=== PATIENT | male | born 1995 | race Asian ===

== ENCOUNTER 2017-03-31 11:48 | Emergency (ER) | payer MEDICAID ==
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
[2017-03-31 14:10] VITALS: BP 134/92
== END 2017-03-31 14:10 | disposition home or self-care (01) ==
LOC: ED 11:48
DX: Z04.8 Encounter for examination and observation for other specified reasons (principal)
CPT/HCPCS: 99282; 99283

== ENCOUNTER 2017-04-25 14:37 | Outpatient (CLI) | payer MEDICAID | END 2017-04-25 14:38 | disposition critical access hospital (66) | LOC: EMS 14:37 | PROVIDERS: ATTEND Surgery | DX: F91.9 Conduct disorder, unspecified (principal) | CPT/HCPCS: A0425; A0429 ==

== ENCOUNTER 2017-04-25 14:55 | Emergency (ER) | payer MEDICAID ==
[2017-04-25 15:52] VITALS: BP 140/87
[2017-04-25] MEDS ORDERED: LORazepam 0.5 MG TABLET PO STA ×2 (16:02→16:04)
[2017-04-25] MEDS ORDERED: LORazepam 0.5 MG TABLET ONE (16:08)
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
== END 2017-04-25 17:29 | disposition home or self-care (01) ==
LOC: ED 14:55
DX: F84.0 Autistic disorder (principal)
CPT/HCPCS: 99283; 99284; A9270; 80053; 80307; 80320; 80329; 83690; 85025

== ENCOUNTER 2017-10-24 12:07 | Outpatient (CLI) | payer MEDICAID | END 2017-10-24 12:08 | disposition critical access hospital (66) | LOC: EMS 12:07 | PROVIDERS: ATTEND Surgery | DX: R45.6 Violent behavior (principal); R45.1 Restlessness and agitation | CPT/HCPCS: A0425; A0429 ==

== ENCOUNTER 2017-10-24 12:37 | Emergency (ER) | payer MEDICAID ==
--- NOTE | 2017-10-24 12:44 | ED Physician Documentation ---
PD HPI MHE - Stated complaint Stated Complaint: VIOLENT - History obtained from History obtained from: Patient, EMS - History of Present Illness Primary symptom: Anxiety, Aggressive behavior (staff member says the patient has been more agitated over baseline with some aggressive acting out at times over the past 1-2 weeks. Was very agitated today and throwing things and was wandering out into street. He was not easily calmed. EMS called and he is improved enroute here. He had had similar problems few months ago and was improved with Clonazepam PO added daily and Ativan PRN. He is waiting to get into Autism clinic in [place]. Current PCP is [facility] in [facility].) Timing - onset: How many weeks ago (1-2 weeks of increased agitation over baseline, most in mornings.) Contributing factors: No: Off meds Similar symptoms before: Diagnosis (aggressive behavior related to anxiety/ stress with his cognitive problem/autism.) Recently seen: Not recently seen Review of Systems Constitutional: denies: Fever Respiratory: denies: Cough GI: denies: Vomiting, Diarrhea Skin: denies: Rash PD PAST MEDICAL HISTORY - Past Medical History Cardiovascular: Other Respiratory: None Neuro: None Psych: Other (autism) - Past Surgical History Past Surgical History: No - Present Medications Home Medications: Ambulatory Orders Medication Instructions Recorded Confirmed Carbamazepine 200 mg PO BID 03/31/17 04/25/17 Cholecalciferol (Vitamin D3) 2,000 unit PO DAILY 03/31/17 04/25/17 [Vitamin D] LORazepam [Ativan] 0.5 mg PO Q6H 03/31/17 04/25/17 Mupirocin 1 gm TP BID 03/31/17 04/25/17 Quetiapine Fumarate [Seroquel] 300 mg PO TID 03/31/17 04/25/17 - Allergies Allergies/Adverse Reactions: Allergies Allergy/AdvReac Type Severity Reaction Status Date / Time amoxicillin Allergy Unknown Verified 04/25/17 15:52 - Social History Does the pt smoke?: No Smoking Status: Never smoker Does the pt drink ETOH?: No Does the pt have substance abuse?: No PD ED PE NORMAL - Vitals Vital signs reviewed: Yes - General General: No acute distress, Well developed/nourished, Other (non verbal but will answer yes/no by pointing to left or right hands. Follows commands right now. Not aggressive here in ED. ) - HEENT HEENT: Atraumatic. No: Dentition benign (apparent broken teeth from recent injuries. 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 No: Normal speech Results - Vitals Vitals: Vital Signs - 24 hr 10/24/17 12:41 Temperature 36.8 C Heart Rate 108 H Respiratory 20 Rate Blood Pressure 135/92 H O2 Saturation 98 Oxygen O2 Source Room air PD MEDICAL DECISION MAKING - ED course Complexity details: considered differential, d/w PMD (compressor station engineer chief provider for his clinic, and concurs with adding Clonazepam dose at night, so 1 mg day and 0.5 mg at night. Other meds the same. ), other (d/w caregiver with him, who feels he is doing okay right now. Patient agrees he could use med adjustment and would like to feel less agitated. ) Departure - Departure Clinical Impression: Autism, Behavioral change Condition: Stable Record reviewed to determine appropriate education?: Yes Comments: Increase his Clonazepam from 1 mg daily, to new dose: Clonazepam 1 mg in daily AM Clonazepam 0.5 mg daily PM I discussed this with his primary care clinic and this was a concurrence decision. Other medications the same.
[2017-10-24] MEDS ORDERED: OLANZapine ODT 5 MG TABLET TL ONE (12:58)
[2017-10-24 14:09] VITALS: BP 132/88
== END 2017-10-24 14:18 | disposition home or self-care (01) ==
LOC: ED 12:37
DX: F84.0 Autistic disorder (principal); R45.1 Restlessness and agitation
CPT/HCPCS: 99283; A9270

== ENCOUNTER 2017-10-28 08:36 | Outpatient (CLI) | payer MEDICAID | END 2017-10-28 08:37 | disposition critical access hospital (66) | LOC: EMS 08:36 | PROVIDERS: ATTEND Surgery | DX: R45.6 Violent behavior (principal) | CPT/HCPCS: A0425; A0429 ==

== ENCOUNTER 2017-10-28 08:56 | Emergency (ER) | payer MEDICAID ==
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
[2017-10-28] MEDS: LORazepam 0.5 MG TABLET PO STA (09:29)
[2017-10-28] MEDS ORDERED: CHERRY SYRUP 10 ML UDC PO ONE ×2 (10:17→13:38)
[2017-10-28] MEDS ORDERED: LORazepam 2 MG/ML VIAL IM STA ×2 (11:01→17:21)
[2017-10-28] MEDS ORDERED: LORazepam 0.5 MG TABLET PO STA ×2 (12:59→23:20)
[2017-10-28] MEDS ORDERED: OLANZapine ODT 5 MG TABLET TL STA (20:32)
[2017-10-29 01:56] LABS: MUDS CUTOFF CONCENTRATIONS CUTOFF CONC BELOW:
[2017-10-29 01:59] LABS: BILIRUBIN,URINE NEGATIVE (NEGATIVE); GLUCOSE, URINE (UA) NEGATIVE (NEGATIVE); KETONES,URINE (UA) NEGATIVE (NEGATIVE); LEUKOCYTE ESTERASE, URINE NEGATIVE (NEGATIVE); NITRITE,URINE NEGATIVE (NEGATIVE); OCCULT BLOOD,URINE NEGATIVE (NEGATIVE); PROTEIN,URINE NEGATIVE (NEGATIVE); UROBILINOGEN,URINE 0.2 (NORMAL) E.U./dL (NORMAL)
[2017-10-29 02:09] LABS: CLARITY,URINE CLEAR (CLEAR)
[2017-10-29 02:10] LABS: AMPHETAMINE SCREEN,URINE NEGATIVE (NEGATIVE); BENZODIAZEPINES SCREEN, URINE POSITIVE (NEGATIVE); COCAINE SCREEN URINE NEGATIVE (NEGATIVE); METHADONE SCREEN, URINE NEGATIVE (NEGATIVE); METHAMPHETAMINES SCREEN, URINE NEGATIVE (NEGATIVE); OPIATE SCREEN, URINE NEGATIVE (NEGATIVE); OXYCODONE SCREEN, URINE NEGATIVE (NEGATIVE); PROPOXYPHENE SCREEN, URINE NEGATIVE (NEGATIVE); TRICYCLIC ANTIDEPRESSANT,URINE POSITIVE (NEGATIVE)
[2017-10-29] MEDS ORDERED: LORazepam 0.5 MG TABLET PO STA ×2 (08:22→14:18)
[2017-10-29] MEDS: LORazepam 0.5 MG TABLET PO STA (12:42)
[2017-10-29] MEDS ORDERED: LORazepam 0.5 MG TABLET PO SCH (13:00)
[2017-10-29] MEDS ORDERED: LORazepam 2 MG/ML VIAL IM STA ×2 (14:20→14:29)
[2017-10-29] MEDS ORDERED: LORazepam 2 MG/ML VIAL ONE (14:32)
[2017-10-29 18:03] VITALS: BP 127/77
[2017-10-29] MEDS ORDERED: carBAMazepine 200 MG TABLET PO SCH (21:00)
[2017-10-29] MEDS ORDERED: QUEtiapine 100 MG TABLET PO SCH (21:00)
[2017-10-30] MEDS ORDERED: clonazePAM 0.5 MG TABLET PO SCH (09:00)
== END 2017-10-29 18:13 | disposition home or self-care (01) ==
LOC: EDUNIT# → ED 08:56
DX: F84.0 Autistic disorder (principal); F91.8 Other conduct disorders; R45.1 Restlessness and agitation; S40.811A Abrasion of right upper arm, initial encounter; X83.8XXA Intentional self-harm by other specified means, initial encounter
CPT/HCPCS: 80306; 81003; 96372; 99284; A9270; J2060; 81001; 87086

== ENCOUNTER 2017-11-03 04:23 | Outpatient (CLI) | payer MEDICAID | END 2017-11-03 04:24 | disposition critical access hospital (66) | LOC: EMS 04:23 | PROVIDERS: ATTEND Surgery | DX: R45.6 Violent behavior (principal) | CPT/HCPCS: A0425; A0429 ==

== ENCOUNTER 2017-11-03 04:39 | Emergency (ER) | payer MEDICAID ==
[2017-11-03] MEDS ORDERED: OLANZapine 10 MG VIAL IM STA (04:56)
[2017-11-03] MEDS ORDERED: OLANZapine 10 MG VIAL IM ONE (05:08)
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
--- NOTE | 2017-11-03 08:04 | ED Physician Documentation ---
ED Addendum - Addendum Addendum: 11/03/17 08:01 Patient was removed from restraints and is at his normal mental baseline. No emergency medical condition at this time. Caregiver will come and pick him up. Will follow up with PCP for further care. 09 Patient's shelter refuses to take the patient back at this time. Deborah DAVIS involved and speaking with Ramírez from [facility]. [facility] requests DMHP evaluation. [facility] contacted by RN and pt does not meet dispatch criteria. [facility] then requests SW involvement. As of 1699, there is no resolution and unfortunately this young man will have to remain in an emergency department indefinitely due to the shelter's refusal to care for him any further. Patient signed out to oncoming emergency physician. Departure - Departure Clinical Impression: Behavioral change Condition: Stable Follow-Up: BELEN RUBI MD [Primary Care Provider] - Within 3 Days Comments: You can speak to his primary care provider about changing his medications. If he continues to have behavioral issues, you can call the [facility] and they will dispatch a DMHP to evaluate him at your facility. ( )/
[2017-11-03] MEDS ORDERED: OLANZapine ODT 5 MG TABLET TL STA (10:26)
[2017-11-03] MEDS ORDERED: LORazepam 0.5 MG TABLET PO STA ×2 (10:26→16:58)
[2017-11-03] MEDS ORDERED: QUEtiapine 100 MG TABLET PO STA (16:10)
[2017-11-03] MEDS ORDERED: carBAMazepine 200 MG TABLET PO STA (16:10)
[2017-11-03] MEDS ORDERED: clonazePAM 0.5 MG TABLET PO STA (16:10)
[2017-11-03] MEDS ORDERED: OLANZapine ODT 5 MG TABLET TL ONE (16:58)
[2017-11-03] MEDS: carBAMazepine 200 MG TABLET PO SCH ×2 (17:03→22:15)
[2017-11-03] MEDS ORDERED: LORazepam 2 MG/ML VIAL IM STA (19:45)
--- NOTE | 2017-11-03 19:51 | ED Physician Documentation ---
ED Addendum - Addendum Addendum: 11/03/17 19:50 unscheduled return visit - chart accessed for follow up and educational purposes
[2017-11-03] MEDS: QUEtiapine 100 MG TABLET PO SCH (22:14)
[2017-11-04] MEDS: QUEtiapine 100 MG TABLET PO SCH ×3 (06:34→21:45)
[2017-11-04] MEDS ORDERED: LORazepam 2 MG/ML VIAL IM STA (06:35)
[2017-11-04] MEDS: clonazePAM 0.5 MG TABLET PO SCH (08:56)
[2017-11-04] MEDS: carBAMazepine 200 MG TABLET PO SCH ×2 (08:56→21:15)
[2017-11-04] MEDS ORDERED: LORazepam 0.5 MG TABLET PO STA ×3 (09:25→21:55)
--- NOTE | 2017-11-04 17:53 | ED Physician Documentation ---
ED Addendum - Addendum Addendum: 11/04/17 17:51 22-year-old male with autism spectrum disorder has become disorderly in his residence and is not welcome to come back there. Here in the emergency department the patient has some behavioral issues with some moaning and wandering and this has not worked well in the emergency department and he has been medicated for these behaviors with Ativan and Seroquel. Despite medication for this the patient continues to have outbursts of morning. Here in the emergency department today he received several doses of Ativan he received his Seroquel and he continues to have this morning behavior wandering and there is a worker from the [facility] that is working on bed placement for the patient. There is a fair chance he may have a bed to go to tomorrow. I did personally examine the patient did not find anything more specific.
[2017-11-05] MEDS: QUEtiapine 100 MG TABLET PO SCH ×3 (06:21→21:33)
[2017-11-05] MEDS ORDERED: LORazepam 0.5 MG TABLET PO STA ×2 (07:31→13:10)
[2017-11-05] MEDS: carBAMazepine 200 MG TABLET PO SCH ×2 (09:52→21:33)
[2017-11-05] MEDS: clonazePAM 0.5 MG TABLET PO SCH (09:52)
[2017-11-05] MEDS ORDERED: hydrOXYzine PAMOATE 25 MG CAPSULE PO STA (11:09)
[2017-11-05] MEDS ORDERED: HALOPERIDOL 1 MG TABLET PO STA (17:46)
[2017-11-05] MEDS ORDERED: diphenhydrAMINE 25 MG CAPSULE PO STA (17:47)
[2017-11-05] MEDS ORDERED: LORazepam 2 MG/ML VIAL IM STA (19:36)
--- NOTE | 2017-11-05 22:04 | ED Physician Documentation ---
ED Addendum - Addendum Addendum: 11/05/17 22:03 He has been pretty much the same today as he has been in days past. Intermittently agitated but usually cooperative. The tech and sitter took him for a walk outside earlier today which helped calm him for a while and I guess the shower last night helped for a while as well. He has been getting his routine meds and an occasional extra dose of Ativan when he is very agitated. My understanding is that the state is looking for long-term placement.
[2017-11-06] MEDS: QUEtiapine 100 MG TABLET PO SCH ×3 (06:57→22:00)
[2017-11-06] MEDS: clonazePAM 0.5 MG TABLET PO SCH (08:43)
[2017-11-06] MEDS: carBAMazepine 200 MG TABLET PO SCH ×2 (08:43→21:08)
[2017-11-06] MEDS ORDERED: HALOPERIDOL 1 MG TABLET PO STA (10:27)
[2017-11-06] MEDS ORDERED: diphenhydrAMINE 25 MG CAPSULE PO STA (10:27)
[2017-11-06] MEDS ORDERED: LORazepam 0.5 MG TABLET PO STA (14:41)
[2017-11-07] MEDS: QUEtiapine 100 MG TABLET PO SCH ×3 (06:09→22:15)
[2017-11-07] MEDS ORDERED: LORazepam 2 MG/ML VIAL IM STA (06:17)
--- NOTE | 2017-11-07 06:19 | ED Physician Documentation ---
ED Addendum - Addendum Addendum: at approximately 6:15 in the morning on 11/07/17 patient was becoming agitated and biting himself. patient had already taken his morning medications and was treated with supplemental ativan IM. Patient had no issues overnight. 11/07/17 06:18
[2017-11-07] MEDS: clonazePAM 0.5 MG TABLET PO SCH (08:35)
[2017-11-07] MEDS: carBAMazepine 200 MG TABLET PO SCH ×2 (08:35→20:47)
[2017-11-07] MEDS ORDERED: LORazepam 0.5 MG TABLET PO STA ×2 (12:20→18:52)
[2017-11-08] MEDS: QUEtiapine 100 MG TABLET PO SCH ×3 (06:15→21:38)
[2017-11-08] MEDS ORDERED: LORazepam 0.5 MG TABLET PO STA ×2 (08:41→18:05)
[2017-11-08] MEDS: clonazePAM 0.5 MG TABLET PO SCH (09:39)
[2017-11-08] MEDS: carBAMazepine 200 MG TABLET PO SCH ×2 (09:39→21:38)
--- NOTE | 2017-11-08 10:04 | ED Physician Documentation ---
ED Addendum - Addendum Addendum: 11/08/17 10:02 Patient is in room. He is watching a show. He is being given his usual morning meds. No report of problems from warehouse shift supervisor and will give him usual meds. Reportedly no placement movement happening until some assessment on Friday.
[2017-11-09] MEDS: QUEtiapine 100 MG TABLET PO SCH ×3 (06:30→21:54)
[2017-11-09] MEDS: carBAMazepine 200 MG TABLET PO SCH ×2 (09:13→21:54)
[2017-11-09] MEDS: clonazePAM 0.5 MG TABLET PO SCH (09:13)
[2017-11-09] MEDS ORDERED: LORazepam 0.5 MG TABLET PO STA ×2 (13:28→23:01)
[2017-11-09] MEDS ORDERED: ACETAMINOPHEN 325 MG TABLET PO STA (22:42)
--- NOTE | 2017-11-10 06:06 | ED Physician Documentation ---
ED Addendum - Addendum Addendum: 11/10/17 06:01 Patient was increasingly agitated at the beginning of my shift and was given ativan (ordered by mid-shift ED MD who was still on duty at the time; this was prior to turn over of this patient's care). Shortly after receiving the ativan, patient fell asleep and he rested quietly for the remainder of my shift. Patient 's care turned over to oncoming ED physician. Further evaluation for placement is planned for later today.
[2017-11-10] MEDS: QUEtiapine 100 MG TABLET PO SCH ×3 (06:44→22:16)
[2017-11-10] MEDS: carBAMazepine 200 MG TABLET PO SCH ×2 (09:13→21:03)
[2017-11-10] MEDS: clonazePAM 0.5 MG TABLET PO SCH (09:14)
[2017-11-10] MEDS ORDERED: LORazepam 0.5 MG TABLET PO STA ×2 (12:01→22:36)
[2017-11-10] MEDS ORDERED: LORazepam 0.5 MG TABLET ONE (22:48)
[2017-11-10] MEDS ORDERED: OLANZapine 10 MG VIAL IM STA (23:16)
[2017-11-10] MEDS ORDERED: WATER FOR INJECTION,STERILE 10 ML ONE (23:20)
[2017-11-10] MEDS ORDERED: OLANZapine 10 MG VIAL IM ONE (23:20)
[2017-11-11] MEDS: QUEtiapine 100 MG TABLET PO SCH ×3 (06:29→21:43)
--- NOTE | 2017-11-11 08:07 | ED Physician Documentation ---
ED Addendum - Addendum Addendum: 11/11/17 07:58 Received sign-out from previous (mid-shift) ED physician. Patient continues to await disposition (placement to appropriate facility). As he did the previous night, patient became agitated and did not respond to attempts at verbal reassurance/instruction. He did take 2 mg PO ativan that I ordered for this agitation, but he subsequently escalated, ran out of his room and was trying to strike his head against the wall (I did not witness this, as I was in another room with a patient, and nurse was able to direct patient back to his room). Due to this behavior, he was placed in four-point restraints and given IM zyprexa (these measures were undertaken after RN informed me of patient 's behavior and my direction for the restraints and zyprexa to be given). These orders were entered into the computer under a different physician (Dr. Comer) accidentally. Patient responded quickly to the Zyprexa, fell asleep, and rested calmly and quietly for the remainder of my shift. Turned over to Dr. Jones at the end of my shift, 7 AM 11/11/17.
[2017-11-11] MEDS: clonazePAM 0.5 MG TABLET PO SCH (09:37)
[2017-11-11] MEDS: carBAMazepine 200 MG TABLET PO SCH ×2 (09:37→21:43)
[2017-11-11] MEDS ORDERED: LORazepam 0.5 MG TABLET PO STA (11:35)
[2017-11-11] MEDS ORDERED: OLANZapine ODT 5 MG TABLET TL ONE (12:36)
[2017-11-12] MEDS: QUEtiapine 100 MG TABLET PO SCH ×3 (05:56→21:35)
[2017-11-12] MEDS ORDERED: LORazepam 2 MG/ML VIAL IM STA (06:49)
[2017-11-12] MEDS: carBAMazepine 200 MG TABLET PO SCH ×2 (10:41→21:35)
[2017-11-12] MEDS: clonazePAM 0.5 MG TABLET PO SCH (10:41)
[2017-11-12] MEDS ORDERED: LORazepam 0.5 MG TABLET PO STA (12:49)
--- NOTE | 2017-11-12 21:45 | ED Physician Documentation ---
ED Addendum - Addendum Addendum: 11/12/17 21:44 He seems to have been a little more calm today than in days past, mostly in the room with a sitter. I have not heard a whole lot of screaming or yelling. And he has not needed his much extra medication. I do not think he has been restrained at all today. My understanding is probably still be next week before he is placed.
[2017-11-13] MEDS: QUEtiapine 100 MG TABLET PO SCH ×3 (06:00→21:35)
[2017-11-13] MEDS: clonazePAM 0.5 MG TABLET PO SCH (09:14)
[2017-11-13] MEDS: carBAMazepine 200 MG TABLET PO SCH ×2 (09:14→21:35)
[2017-11-13] MEDS ORDERED: OLANZapine 10 MG VIAL IM STA (09:16)
[2017-11-13] MEDS ORDERED: LORazepam 2 MG/ML VIAL IM STA ×2 (10:55→15:53)
--- NOTE | 2017-11-13 10:57 | ED Physician Documentation ---
ED Addendum - Addendum Addendum: 11/13/17 10:56 The patient remains in the ER having been here for a long time awaiting placement. He had been getting his usual medications. No significant report from overnight shift. This morning he was getting more agitated than his usual morning and was given extra doses of medication with olanzapine 5 mg IM initially and then Ativan 1 mg IM after that. He was given his usual morning medicines as well. He was being verbal as is common for him but also some physicality with being at agitated.
[2017-11-13] MEDS ORDERED: LORazepam 0.5 MG TABLET PO STA (17:00)
[2017-11-14] MEDS: QUEtiapine 100 MG TABLET PO SCH ×3 (06:35→21:14)
--- NOTE | 2017-11-14 06:40 | ED Physician Documentation ---
ED Addendum - Addendum Addendum: 11/14/17 06:43 Continues to await placement. Rested quietly during my shift subsequent to receiving sign-out from previous ED MD (11 PM 11/13/17) until the end of my shift , approximately 6:45 AM, when he awoke and rapidly became agitated and repeatedly walking out of his room to hallway. He was given 2mg PO ativan.
[2017-11-14] MEDS ORDERED: LORazepam 0.5 MG TABLET PO STA ×3 (06:52→20:38)
[2017-11-14] MEDS: carBAMazepine 200 MG TABLET PO SCH ×2 (09:25→21:15)
[2017-11-14] MEDS: clonazePAM 0.5 MG TABLET PO SCH (09:25)
[2017-11-14] MEDS ORDERED: OLANZapine 10 MG VIAL IM STA (14:50)
[2017-11-15] MEDS: QUEtiapine 100 MG TABLET PO SCH ×3 (06:15→21:30)
--- NOTE | 2017-11-15 07:47 | ED Physician Documentation ---
ED Addendum - Addendum Addendum: 11/15/17 07:43 assumed care 7 AM 11/15 22 male with autism and aggressive behavior sent to ER from his skilled nursing for placement elsewhere per EMR no injury or illness it has been boarding in the ER since 11/03 awaiting state designated casey saw operator to secure new placement I went to see pt he was up and ambulating s assist to the bathroom, then back to bed calm and resting comfortable RRR CTAB has daily meds ordered already plan is to continue to board through the weekend pt became agitated late morning staff tried to redirect and calm s success gave ativan pt continued to become more agitated aggressive had to be restrained continued to be agitated and struggling and yelling so gave zyprexa which (per EMR) has worked well other times during his prolonged ER boarding with good effect pt slept peacefully for several h care turned over to mid shift Dr Milian at 5 PM 11/15/17 11:35 11/15/17 16:47
--- NOTE | 2017-11-15 08:03 | ED Physician Documentation ---
ED Addendum - Addendum Addendum: 11/15/17 08:02 Continues to await placement. Towards the beginning of my overnight shift (-11/15/17), shortly after 8 PM, patient was walking out to the desk (nurses' station). He did this repeatedly despite redirection by nursing staff; he would go back to room when brought back, but would walk back out to the desk as soon as he was left alone. He became increasingly agitated, although he did not become combative or violent. Given 2mg PO ativan and responded well to this. During my shift, he was taken outside for a walk with staff and this seemed to calm him, as well. Turned over to oncoming ED physician at 7 AM 11/15/17
[2017-11-15] MEDS: carBAMazepine 200 MG TABLET PO SCH ×2 (09:29→21:30)
[2017-11-15] MEDS: clonazePAM 0.5 MG TABLET PO SCH (09:29)
[2017-11-15] MEDS ORDERED: LORazepam 0.5 MG TABLET PO STA ×2 (10:31→20:17)
[2017-11-15] MEDS ORDERED: OLANZapine 10 MG VIAL IM STA (11:34)
[2017-11-16] MEDS: QUEtiapine 100 MG TABLET PO SCH ×3 (06:05→21:39)
--- NOTE | 2017-11-16 07:24 | ED Physician Documentation ---
ED Addendum - Addendum Addendum: 11/16/17 07:23 assumed care again 7 AM 11/16 shift stacker reports pt had a good night - got a shower, went for a walk and staff brought in books to read to him went to see pt he is resting in bed but awake and smiling RRR CTAB will continue to board pending placement no acute events this shift pt became a bit agitated better with ativan no restraints needed provided coloring book and magazine for pt to help with his boredom and frustration 11/16/17 19:40
[2017-11-16] MEDS: carBAMazepine 200 MG TABLET PO SCH ×2 (09:36→21:39)
[2017-11-16] MEDS: clonazePAM 0.5 MG TABLET PO SCH (09:36)
[2017-11-16] MEDS ORDERED: LORazepam 0.5 MG TABLET PO STA (10:31)
[2017-11-16] MEDS ORDERED: OLANZapine 10 MG VIAL IM STA ×2 (13:51→20:01)
--- NOTE | 2017-11-17 07:25 | ED Physician Documentation ---
ED Addendum - Addendum Addendum: 11/17/17 07:22 resumed care 7 AM 11/17/17 per awake overnight monitor Dr Rizzo given zyprexa yesterday evening no restraints overnight went to see pt he is in bed but awake smiling RRR CTAB calm at this time daily meds ordered already continues to board in the ED pending placement by his [facility] field nurse case manager today is the day [facility] field nurse case manager has a meeting to place pt awaiting outcome of this meeting 730PM per note unfortunately the anticipated meeting seems to have never occurred pts field nurse case manager was off work today now a new field nurse case manager has been assigned pts info has been sent to 4 residential care homes and two agencies per house sup pt is to remain boarding in the ER turned over to awake overnight monitor 11/17/17 07:23 11/17/17 19:40
[2017-11-17] MEDS: QUEtiapine 100 MG TABLET PO SCH ×3 (08:23→21:05)
[2017-11-17] MEDS: clonazePAM 0.5 MG TABLET PO SCH (08:23)
[2017-11-17] MEDS: carBAMazepine 200 MG TABLET PO SCH ×2 (08:23→21:04)
[2017-11-17] MEDS ORDERED: LORazepam 0.5 MG TABLET PO STA ×2 (14:36→20:59)
[2017-11-17] MEDS ORDERED: LORazepam 0.5 MG TABLET ONE (14:44)
[2017-11-18] MEDS: QUEtiapine 100 MG TABLET PO SCH ×3 (06:20→21:25)
[2017-11-18] MEDS: carBAMazepine 200 MG TABLET PO SCH ×2 (08:35→21:25)
[2017-11-18] MEDS: clonazePAM 0.5 MG TABLET PO SCH (08:35)
[2017-11-18] MEDS ORDERED: LORazepam 0.5 MG TABLET PO STA ×2 (09:10→14:45)
[2017-11-18] MEDS ORDERED: OLANZapine ODT 5 MG TABLET TL ONE ×2 (11:34→11:48)
[2017-11-18] MEDS ORDERED: WATER FOR INJECTION,STERILE 10 ML ONE (11:45)
[2017-11-18] MEDS ORDERED: OLANZapine 10 MG VIAL IM STA (14:09)
[2017-11-18] MEDS ORDERED: LORazepam 2 MG/ML VIAL IM STA (14:48)
[2017-11-18] MEDS ORDERED: LORazepam 2 MG/ML VIAL ONE (14:56)
[2017-11-19] MEDS: QUEtiapine 100 MG TABLET PO SCH ×3 (06:28→21:35)
[2017-11-19] MEDS ORDERED: LORazepam 0.5 MG TABLET PO STA (07:41)
[2017-11-19] MEDS ORDERED: LORazepam 0.5 MG TABLET ONE (07:52)
[2017-11-19] MEDS: clonazePAM 0.5 MG TABLET PO SCH (09:10)
[2017-11-19] MEDS: carBAMazepine 200 MG TABLET PO SCH ×2 (09:10→21:35)
[2017-11-19] MEDS: LORazepam 0.5 MG TABLET PO PRN (17:33)
[2017-11-20] MEDS: LORazepam 0.5 MG TABLET PO PRN ×3 (00:35→21:34)
[2017-11-20] MEDS ORDERED: OLANZapine 10 MG VIAL IM STA ×2 (01:19→13:19)
--- NOTE | 2017-11-20 01:22 | ED Physician Documentation ---
ED Addendum - Addendum Addendum: 11/20/17 01:20 At this time, patient is yelling loudly, kicking at bed as well as staff. He does not improve with attempts to verbally calm/soothe him, lights turned down, offered television as distraction. He required 4-point restraints due to aggressive behavior toward staff and given IM zyprexa. 11/20/17 07:45 Subsequent to the IM zyprexa, patient slowly but steadily improved (less agitated, more cooperative) and restraints removed, patient fell asleep and slept quietly for the remainder of my overnight shift (11/19-11/20/17). Signed out to onccarmina ED MD at 7 AM 11/20/17.
[2017-11-20] MEDS ORDERED: LORazepam 0.5 MG TABLET PO STA (02:01)
[2017-11-20] MEDS ORDERED: LORazepam 2 MG/ML VIAL ONE (02:31)
[2017-11-20] MEDS ORDERED: LORazepam 2 MG/ML VIAL IM STA (02:32)
[2017-11-20] MEDS: QUEtiapine 100 MG TABLET PO SCH ×2 (06:21→21:34)
[2017-11-20] MEDS: carBAMazepine 200 MG TABLET PO SCH ×2 (11:06→21:34)
[2017-11-20] MEDS: clonazePAM 0.5 MG TABLET PO SCH (11:06)
[2017-11-20] MEDS ORDERED: OLANZapine 10 MG VIAL IM ONE (13:31)
[2017-11-20] MEDS ORDERED: WATER FOR INJECTION,STERILE 10 ML ONE (13:31)
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
[2017-11-21] MEDS: QUEtiapine 100 MG TABLET PO SCH ×3 (05:46→21:31)
[2017-11-21] MEDS: LORazepam 0.5 MG TABLET PO PRN ×3 (05:46→21:31)
[2017-11-21] MEDS ORDERED: LORazepam 0.5 MG TABLET PO STA (06:21)
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
[2017-11-21] MEDS: clonazePAM 0.5 MG TABLET PO SCH (09:20)
[2017-11-21] MEDS: carBAMazepine 200 MG TABLET PO SCH ×2 (09:20→21:31)
[2017-11-21] MEDS ORDERED: OLANZapine ODT 5 MG TABLET TL STA (14:12)
[2017-11-22] MEDS: QUEtiapine 100 MG TABLET PO SCH ×3 (06:45→20:53)
[2017-11-22] MEDS: LORazepam 0.5 MG TABLET PO PRN ×2 (06:45→14:23)
--- NOTE | 2017-11-22 07:41 | ED Physician Documentation ---
ED Addendum - Addendum Addendum: 11/22/17 07:40 assumed care again 7 AM 11/22 per nurse no acute events overnight pt watching TV calmly RRR CTAB continues to board awaiting placement 11/22/17 16:09 some other resources/placement that might be useful for this pt would include [employer] [facility] in [place] or [facility] provide immediate respite care pending permanent placement rather than boarding in ED no acute events today turned over to house furnishings supervisor Dr Davis 11/22/17 16:13 11/22/17 20:15
[2017-11-22] MEDS: clonazePAM 0.5 MG TABLET PO SCH (08:54)
[2017-11-22] MEDS: carBAMazepine 200 MG TABLET PO SCH ×2 (08:54→20:53)
[2017-11-22] MEDS ORDERED: LORazepam 2 MG/ML VIAL IM STA (16:12)
[2017-11-22] MEDS ORDERED: LORazepam 2 MG/ML VIAL ONE (16:25)
[2017-11-23] MEDS: QUEtiapine 100 MG TABLET PO SCH ×2 (06:06→14:19)
[2017-11-23] MEDS: LORazepam 0.5 MG TABLET PO PRN ×3 (06:06→17:45)
--- NOTE | 2017-11-23 07:59 | ED Physician Documentation ---
ED Addendum - Addendum Addendum: 11/23/17 07:57 assumed care again 7 AM 11/23 pt up and awake with nurse sitter in room happy RRR CTAB will continue to board no expectation of placement today as it is Friday no acute events care turned over to next shift 11/23/17 19:57
[2017-11-23] MEDS: carBAMazepine 200 MG TABLET PO SCH (11:12)
[2017-11-23] MEDS: clonazePAM 0.5 MG TABLET PO SCH (11:12)
[2017-11-24] MEDS: LORazepam 0.5 MG TABLET PO PRN ×3 (04:42→23:55)
[2017-11-24] MEDS: QUEtiapine 100 MG TABLET PO SCH ×3 (06:29→21:35)
[2017-11-24] MEDS: carBAMazepine 200 MG TABLET PO SCH ×2 (09:10→21:30)
[2017-11-24] MEDS: clonazePAM 0.5 MG TABLET PO SCH (09:10)
[2017-11-24] MEDS ORDERED: LORazepam 2 MG/ML VIAL IVP STA (09:32)
[2017-11-24] MEDS ORDERED: OLANZapine 10 MG VIAL IM STA ×2 (09:36→09:56)
[2017-11-24] MEDS ORDERED: OLANZapine 10 MG VIAL IM ONE (09:47)
[2017-11-24] MEDS ORDERED: LORazepam 2 MG/ML VIAL IM STA (09:57)
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
[2017-11-25] MEDS ORDERED: diphenhydrAMINE INJ 50 MG/ML VIAL IM PRN (06:14)
[2017-11-25] MEDS: QUEtiapine 100 MG TABLET PO SCH ×3 (06:30→21:30)
[2017-11-25] MEDS: LORazepam 0.5 MG TABLET PO SCH ×3 (06:30→21:30)
[2017-11-25] MEDS: carBAMazepine 200 MG TABLET PO SCH ×3 (06:30→21:30)
[2017-11-25] MEDS: LORazepam 0.5 MG TABLET PO PRN ×2 (09:30→19:20)
--- NOTE | 2017-11-25 18:02 | ED Physician Documentation ---
ED Addendum - Addendum Addendum: 11/25/17 17:56 Today Curtis did not assault anyone and did not require PRN sedatives or restraint during my shift. Supplemental resources have been supplied with history from prior residential care, psych notes and interval history notes since childhood. These are helpful in communicating with Curtis and treating him in a manor he has experienced previously. His medications have been changed slightly at the recommendation of telepsych Dr. Shrestha. It does not appear a ready solution to his residence is forth coming and here in the ED we are attempting to provide a structured environment to lessen the load of his care on the ED and to provide the patient with more stable care.
[2017-11-25] MEDS ORDERED: OLANZapine 10 MG VIAL IM STA ×2 (19:35→19:38)
[2017-11-25] MEDS ORDERED: KETAMINE 500 MG/10 ML VIAL IM STA (19:41)
[2017-11-25] MEDS ORDERED: OLANZapine 10 MG VIAL IM ONE (19:50)
[2017-11-25] MEDS ORDERED: diphenhydrAMINE INJ 50 MG/ML VIAL IM STA (21:25)
[2017-11-25] MEDS ORDERED: LORazepam 2 MG/ML VIAL IM STA (21:26)
[2017-11-26] MEDS: LORazepam 0.5 MG TABLET PO SCH ×3 (06:10→21:33)
[2017-11-26] MEDS: QUEtiapine 100 MG TABLET PO SCH ×3 (06:10→21:33)
[2017-11-26] MEDS: carBAMazepine 200 MG TABLET PO SCH ×3 (06:10→21:33)
[2017-11-26] MEDS ORDERED: OLANZapine 10 MG VIAL IM STA (13:31)
[2017-11-26] MEDS ORDERED: WATER FOR INJECTION,STERILE 10 ML ONE (13:34)
[2017-11-26] MEDS ORDERED: OLANZapine 10 MG VIAL IM ONE (13:34)
[2017-11-27] MEDS: LORazepam 0.5 MG TABLET PO SCH ×3 (09:00→21:49)
[2017-11-27] MEDS: QUEtiapine 100 MG TABLET PO SCH ×4 (09:00→22:00)
[2017-11-27] MEDS: LORazepam 0.5 MG TABLET PO PRN (10:00)
[2017-11-27] MEDS ORDERED: carBAMazepine 200 MG TABLET PO SCH (12:00)
[2017-11-28] MEDS: QUEtiapine 100 MG TABLET PO SCH ×3 (06:19→21:35)
[2017-11-28] MEDS: LORazepam 0.5 MG TABLET PO SCH ×3 (06:19→21:34)
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
[2017-11-28] MEDS: LORazepam 0.5 MG TABLET PO PRN (09:00)
[2017-11-28] MEDS ORDERED: LORazepam 0.5 MG TABLET PO STA (10:36)
[2017-11-28] MEDS: carBAMazepine 200 MG TABLET PO SCH (15:28)
[2017-11-28] MEDS ORDERED: carBAMazepine 200 MG TABLET PO ONE (21:15)
[2017-11-29] MEDS: LORazepam 0.5 MG TABLET PO SCH ×3 (06:08→22:00)
[2017-11-29] MEDS: QUEtiapine 100 MG TABLET PO SCH ×3 (06:08→22:00)
--- NOTE | 2017-11-29 07:28 | ED Physician Documentation ---
ED Addendum - Addendum Addendum: 11/29/17 07:26 resumed care 7 AM November 29 pt in bed watching movies waiting for breakfast security watching him awake alert calm right now RRR CTAB it is the weekend no anticipation of placement or updates today will continue to board 630 PM uneventful day care turned over to next shift 11/29/17 07:27 11/29/17 18:32
[2017-11-29] MEDS: LORazepam 0.5 MG TABLET PO PRN ×2 (11:48→21:36)
[2017-11-29] MEDS: carBAMazepine 200 MG TABLET PO SCH (13:46)
[2017-11-29] MEDS ORDERED: WATER FOR INJECTION,STERILE 10 ML ONE (21:23)
[2017-11-29] MEDS ORDERED: diphenhydrAMINE INJ 50 MG/ML VIAL ONE (21:23)
[2017-11-29] MEDS ORDERED: OLANZapine 10 MG VIAL IM ONE (21:23)
[2017-11-30] MEDS: carBAMazepine 200 MG TABLET PO SCH ×3 (06:25→21:20)
[2017-11-30] MEDS: QUEtiapine 100 MG TABLET PO SCH ×3 (06:25→21:20)
[2017-11-30] MEDS: LORazepam 0.5 MG TABLET PO SCH ×3 (06:25→21:20)
--- NOTE | 2017-11-30 10:27 | ED Physician Documentation ---
ED Addendum - Addendum Addendum: 11/30/17 10:25 resumed care 7 AM November 30 pt in bed watching movies calm security at bedside RRR CTAB per SW note, next anticipated step is for Sarah Manjarrez DD MentalHealth Liaison , contracted through [employer], to be dispatched by [facility] telephonic case manager Michelle Fisher to eval pt and try to place him in a mental health facility 2/2 grave disability, danger to self/others - anticipated date of this eval is TBD will continue to board uneventful day care turned over to next shift 11/30/17 10:27 11/30/17 17:14
[2017-12-01] MEDS: LORazepam 0.5 MG TABLET PO PRN (04:56)
[2017-12-01] MEDS: QUEtiapine 100 MG TABLET PO SCH ×3 (06:09→22:26)
[2017-12-01] MEDS: carBAMazepine 200 MG TABLET PO SCH ×3 (06:10→22:26)
[2017-12-01] MEDS: LORazepam 0.5 MG TABLET PO SCH ×3 (06:10→22:26)
--- NOTE | 2017-12-01 08:12 | ED Physician Documentation ---
ED Addendum - Addendum Addendum: 12/01/17 08:11 assumed care again 7 AM 7/2 pt in room putting on a clean shirt cooperative at this time RRR CTAB per note, next anticipated step is for Sarah Guerra DD MentalHealth Liaison , contracted through [employer], to be dispatched by [facility] casey saw operator Michelle Fisher to eval pt and try to place him in a mental health facility 2/2 grave disability, danger to self/others - anticipated date of this eval is TBD will continue to board uneventful day per note, Sarah Guerra DD Liaison should be coming to [facility] tomorrow at 1PM care turned over to next shift 12/01/17 19:50 12/01/17 19:51
[2017-12-02] MEDS: LORazepam 0.5 MG TABLET PO PRN ×2 (04:05→16:40)
[2017-12-02] MEDS: LORazepam 0.5 MG TABLET PO SCH ×3 (06:42→22:03)
[2017-12-02] MEDS: QUEtiapine 100 MG TABLET PO SCH ×3 (06:42→22:03)
[2017-12-02] MEDS: carBAMazepine 200 MG TABLET PO SCH ×3 (06:42→22:04)
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
[2017-12-02] MEDS ORDERED: OLANZapine 10 MG VIAL IM STA (08:52)
[2017-12-02] MEDS ORDERED: diphenhydrAMINE 25 MG CAPSULE PO STA (08:52)
[2017-12-03] MEDS: LORazepam 0.5 MG TABLET PO SCH ×3 (06:00→21:58)
[2017-12-03] MEDS: carBAMazepine 200 MG TABLET PO SCH ×3 (06:00→21:58)
[2017-12-03] MEDS: QUEtiapine 100 MG TABLET PO SCH ×3 (06:00→21:58)
[2017-12-03] MEDS ORDERED: OLANZapine 10 MG VIAL IM STA (08:27)
[2017-12-03] MEDS ORDERED: diphenhydrAMINE 25 MG CAPSULE PO STA (08:28)
[2017-12-04] MEDS: LORazepam 0.5 MG TABLET PO SCH ×3 (06:05→22:02)
[2017-12-04] MEDS: carBAMazepine 200 MG TABLET PO SCH ×3 (06:05→22:02)
[2017-12-04] MEDS: QUEtiapine 100 MG TABLET PO SCH ×3 (06:05→22:02)
--- NOTE | 2017-12-04 09:30 | ED Physician Documentation ---
ED Addendum - Addendum Addendum: 12/04/17 09:15 Patient slept quietly during most of my ED shift (overnight 12/03/17-12/04/17, received report from off-going ED MD at 11 PM 12/03 and I signed out to oncoming ED MD 7 AM 12/04/17). Towards the end of my shift, approximately 6:30 AM, patient became agitated, left his room and went into another ED room and tried to use the computer. ED staff was eventually able to redirect him to return to his room. He continued to require repetitive redirection by staff to stay in his room. Turned over to Dr. Jones 7 AM
--- NOTE | 2017-12-04 18:07 | ED Physician Documentation ---
ED Addendum - Addendum Addendum: 12/04/17 18:00 Today Neto Fuentes became agitated at about 10 AM and required staff intervention a number of times. He did not become overtly violent against staff he did tear the doors off of the counter in his room and we were able to arrange the secure room to put him in seclusion.He has now been 2 days without the use of a computer or electronic media he continues to ask for money and [place] videos. Today there did not appear to be any specific trigger for his outburst and he was transferred to the secure room for seclusion with a shut door. he is able to be visualized directly through a window and by close circuit TV monitoring. The exit door to the emergency department is now locked when he is in the seclusion room and a security expert is outside of his door. Yesterday he was medicated with IM zyprexa when he began to escalate and he did not require restraint. Limits and boundaries are being set and the seclusion room is now his residence with punishment for escalation being shutting the door.
[2017-12-05] MEDS: QUEtiapine 100 MG TABLET PO SCH ×3 (06:10→21:44)
[2017-12-05] MEDS: carBAMazepine 200 MG TABLET PO SCH ×3 (06:10→21:44)
[2017-12-05] MEDS: LORazepam 0.5 MG TABLET PO SCH ×3 (06:10→21:44)
[2017-12-05] MEDS: LORazepam 0.5 MG TABLET PO PRN (14:25)
[2017-12-06] MEDS: LORazepam 0.5 MG TABLET PO SCH ×3 (06:01→22:12)
[2017-12-06] MEDS: carBAMazepine 200 MG TABLET PO SCH ×3 (06:01→22:12)
[2017-12-06] MEDS: QUEtiapine 100 MG TABLET PO SCH ×3 (06:01→22:12)
[2017-12-07] MEDS: carBAMazepine 200 MG TABLET PO SCH ×3 (06:06→21:57)
[2017-12-07] MEDS: QUEtiapine 100 MG TABLET PO SCH ×3 (06:06→21:57)
[2017-12-07] MEDS: LORazepam 0.5 MG TABLET PO SCH ×3 (06:06→21:57)
[2017-12-07] MEDS: LORazepam 0.5 MG TABLET PO PRN (12:03)
[2017-12-08] MEDS: LORazepam 0.5 MG TABLET PO SCH ×3 (06:00→22:22)
[2017-12-08] MEDS: QUEtiapine 100 MG TABLET PO SCH ×3 (06:00→22:22)
[2017-12-08] MEDS: carBAMazepine 200 MG TABLET PO SCH ×3 (06:00→22:22)
[2017-12-08] MEDS: LORazepam 0.5 MG TABLET PO PRN (11:30)
[2017-12-09] MEDS: QUEtiapine 100 MG TABLET PO SCH ×3 (06:05→22:35)
[2017-12-09] MEDS: carBAMazepine 200 MG TABLET PO SCH ×3 (06:05→22:35)
[2017-12-09] MEDS: LORazepam 0.5 MG TABLET PO SCH ×3 (06:05→22:35)
[2017-12-09] MEDS ORDERED: MAGNESIUM HYDROXIDE 2,400 MG/30 ML UDC PO STA (12:33)
[2017-12-10] MEDS: QUEtiapine 100 MG TABLET PO SCH ×3 (06:05→22:00)
[2017-12-10] MEDS: LORazepam 0.5 MG TABLET PO SCH ×3 (06:05→22:00)
[2017-12-10] MEDS: carBAMazepine 200 MG TABLET PO SCH ×3 (06:05→22:00)
[2017-12-11] MEDS: carBAMazepine 200 MG TABLET PO SCH ×3 (06:00→22:08)
[2017-12-11] MEDS: LORazepam 0.5 MG TABLET PO SCH ×3 (06:00→22:08)
[2017-12-11] MEDS: QUEtiapine 100 MG TABLET PO SCH ×3 (06:00→22:08)
--- NOTE | 2017-12-11 09:01 | ED Physician Documentation ---
ED Addendum - Addendum Addendum: 12/11/17 09:10 Patient did well during most of my shift (overnight 12/10-12/11/17). He exhibited agitation in the protection officer hours, but responded to redirection and isolation (closed room door) and goal-oriented direction (given computer time in exchange for cooperating and calming down).
[2017-12-12] MEDS: LORazepam 0.5 MG TABLET PO PRN (03:07)
[2017-12-12] MEDS: LORazepam 0.5 MG TABLET PO SCH ×3 (06:33→22:30)
[2017-12-12] MEDS: carBAMazepine 200 MG TABLET PO SCH ×3 (06:33→22:30)
[2017-12-12] MEDS: QUEtiapine 100 MG TABLET PO SCH ×3 (06:33→22:30)
--- NOTE | 2017-12-12 18:25 | ED Physician Documentation ---
ED Addendum - Addendum Addendum: 12/12/17 18:22 During my shift today the patient was mostly calm and cooperative, with security outside the door able to redirect him when he would become agitated. At one point he did become more agitated requiring restraints to be placed temporarily. No new development regarding more appropriate long-term placement.
[2017-12-13] MEDS: QUEtiapine 100 MG TABLET PO SCH ×3 (06:05→22:08)
[2017-12-13] MEDS: carBAMazepine 200 MG TABLET PO SCH ×3 (06:05→22:08)
[2017-12-13] MEDS: LORazepam 0.5 MG TABLET PO SCH ×3 (06:05→22:08)
--- NOTE | 2017-12-13 08:39 | ED Physician Documentation ---
ED Addendum - Addendum Addendum: 12/13/17 08:39 The patient seems to be in his usual state this morning relaxed and comfortable at this time. He is about to have breakfast. He is being monitored with a 1-1 aid in security. He is continuing with his usual medications. There is no reported problems from overnight shift.
[2017-12-13] MEDS: LORazepam 0.5 MG TABLET PO PRN ×2 (11:54→18:15)
[2017-12-14] MEDS: QUEtiapine 100 MG TABLET PO SCH ×3 (06:02→22:49)
[2017-12-14] MEDS: LORazepam 0.5 MG TABLET PO SCH ×3 (06:02→22:49)
[2017-12-14] MEDS: carBAMazepine 200 MG TABLET PO SCH ×3 (06:02→22:49)
[2017-12-14] MEDS: LORazepam 0.5 MG TABLET PO PRN (11:06)
[2017-12-15] MEDS: QUEtiapine 100 MG TABLET PO SCH ×3 (06:42→22:44)
[2017-12-15] MEDS: LORazepam 0.5 MG TABLET PO SCH ×3 (06:42→22:44)
[2017-12-15] MEDS: carBAMazepine 200 MG TABLET PO SCH ×3 (06:42→22:44)
[2017-12-15] MEDS: LORazepam 0.5 MG TABLET PO PRN (08:24)
[2017-12-15] MEDS ORDERED: OLANZapine ODT 5 MG TABLET TL ONE (11:26)
[2017-12-16] MEDS: carBAMazepine 200 MG TABLET PO SCH ×3 (06:30→22:00)
[2017-12-16] MEDS: QUEtiapine 100 MG TABLET PO SCH ×3 (06:30→22:00)
[2017-12-16] MEDS: LORazepam 0.5 MG TABLET PO SCH ×3 (06:30→22:00)
--- NOTE | 2017-12-16 07:38 | ED Physician Documentation ---
ED Addendum - Addendum Addendum: 12/16/17 07:34 assumed care 7 AM 12/16/17 reviewed pts chart last night prior to resuming care per SW and admin notes it seems req for placement have been sent state wide but pt has been declined by numerous facilities [facility] has declined to dispatch [facility] any more SW and or admin should receive a call from pts pillowcase folder regarding results of weekly Friday placement meetings pt has been moved to a new room that can be a seclusion room when needed for pt and staff safety went to see pt he has had breakfast, is up, dressed, and walking around his room seems cheerful RRR CTAB no acute new medical issues identified will continue to board pending placement shift summary - pt became very very agitated mid afternoon pounding on the doors and akbar, could not be redirected and requiring that his door be closed for 15 min - I went to check pt for any injuries he may have suffered - difficult because he is very uncooperative but he is up and walking around, no blood noted on head hand feet, poor dentition generally as before, no ext deformity appreciated, unable to determine if pt is having pain, he has since eaten dinner, gone for a walk, and requested to use the bathroom - does not appear to have any new injuries 12/16/17 20:23
[2017-12-16] MEDS: LORazepam 0.5 MG TABLET PO PRN ×2 (10:23→16:23)
[2017-12-17] MEDS: carBAMazepine 200 MG TABLET PO SCH ×3 (05:30→22:28)
[2017-12-17] MEDS: QUEtiapine 100 MG TABLET PO SCH ×3 (05:30→22:28)
[2017-12-17] MEDS: LORazepam 0.5 MG TABLET PO SCH ×3 (05:30→22:28)
--- NOTE | 2017-12-17 07:50 | ED Physician Documentation ---
ED Addendum - Addendum Addendum: 12/17/17 07:46 resumed care 7 AM 12/17/17 pt is presently very agitated and in seclusion for self and staff safety I went to see him he is standing at the door looking out the window and pounding on the door with his fists he is not hitting is head etc he does not appear injured apparently he did not get his afternoon meds on time yesterday because his nurse was involved in a code then because the afternoon meds were given late, his night meds were delayed - and then pt fell asleep and never got the night meds at all he has received his AM meds on time this change in med administration yesterday may explain his numerous severe violent outbursts over the last 24 hr pt has PRN meds ordered in addition to his regular meds which are now back on schedule examine pt later in the morning, awake alert walking around room drinking juice , RRR, CTAB pt had numerous loud recurrent outbursts and needed to have his door closed for safety several times no placement still will continue to board 12/17/17 20:33 12/17/17 20:41
[2017-12-17] MEDS: LORazepam 0.5 MG TABLET PO PRN (09:18)
[2017-12-18] MEDS: carBAMazepine 200 MG TABLET PO SCH ×3 (06:04→21:50)
[2017-12-18] MEDS: LORazepam 0.5 MG TABLET PO SCH ×3 (06:04→21:50)
[2017-12-18] MEDS: QUEtiapine 100 MG TABLET PO SCH ×3 (06:04→21:50)
--- NOTE | 2017-12-18 06:57 | ED Physician Documentation ---
ED Addendum - Addendum Addendum: 12/18/17 06:56 resumed care 630 AM 12/18/17 as before pt is boarding in our indef pending safe placement no acute medical illness or injury went to see pt he is in his room playing on his phone no acute agitation at this time RRR CTAB plan is to continue to board until his state employment case manager finds placement today was a better day, pt mostly calm, got out for a few walks with security turned over to next shift 12/18/17 20:10
[2017-12-18] MEDS: LORazepam 0.5 MG TABLET PO PRN (17:34)
[2017-12-19] MEDS: QUEtiapine 100 MG TABLET PO SCH ×3 (06:00→21:24)
[2017-12-19] MEDS: LORazepam 0.5 MG TABLET PO SCH ×3 (06:00→21:24)
[2017-12-19] MEDS: carBAMazepine 200 MG TABLET PO SCH ×3 (06:00→21:24)
[2017-12-20] MEDS: QUEtiapine 100 MG TABLET PO SCH ×3 (06:16→21:38)
[2017-12-20] MEDS: LORazepam 0.5 MG TABLET PO SCH ×3 (06:16→21:38)
[2017-12-20] MEDS: carBAMazepine 200 MG TABLET PO SCH ×3 (06:18→21:38)
--- NOTE | 2017-12-20 11:22 | ED Physician Documentation ---
ED Addendum - Addendum Addendum: 12/20/17 11:21 No changes in his status this am. Will continue current meds and treatment plan.
--- NOTE | 2017-12-20 20:49 | ED Physician Documentation ---
ED Addendum - Addendum Addendum: 12/20/17 20:28 on my overnight shift 8 PM 12/19/17 - 7 AM 12/20/17, patient became very agitated at approximately 8:40 PM (12/19/17), punching at staff, threw salgado stand/tray to floor, yelling and punching and kicking the akbar. this behavior lasted approximately 20-30 minutes, after which he calmed and eventually rested and then slept for several hours.
[2017-12-21] MEDS: QUEtiapine 100 MG TABLET PO SCH ×3 (06:11→22:03)
[2017-12-21] MEDS: carBAMazepine 200 MG TABLET PO SCH ×3 (06:11→22:03)
[2017-12-21] MEDS: LORazepam 0.5 MG TABLET PO SCH ×3 (06:11→22:03)
[2017-12-21] MEDS: LORazepam 0.5 MG TABLET PO PRN (10:12)
--- NOTE | 2017-12-21 18:37 | ED Physician Documentation ---
ED Addendum - Addendum Addendum: 12/21/17 18:37 Curtis has had a good day today but he does have a crack to the left front tooth that appears to been sustained recently by banging his head against the glass door. He will need dental evaluation and I believe we can consult a dentist to come to the hospital this week. This does not need to be done over the weekend.
[2017-12-21] MEDS ORDERED: ACETAMINOPHEN 500 MG TABLET PO STA (20:31)
[2017-12-22] MEDS: LORazepam 0.5 MG TABLET PO SCH ×2 (05:50→22:33)
[2017-12-22] MEDS: carBAMazepine 200 MG TABLET PO SCH ×2 (05:50→22:33)
[2017-12-22] MEDS: QUEtiapine 100 MG TABLET PO SCH ×2 (05:50→22:33)
--- NOTE | 2017-12-22 06:57 | ED Physician Documentation ---
ED Addendum - Addendum Addendum: 12/22/17 06:52 assumed care 630 AM 12/22 reviewed records since I last cared for pt apparently he may have damaged a tooth during his violent outbursts this morning he is calm, awake but resting in bed teeth as before appear to have fairly extensive damage and some decay I am not certain how the teeth looked before (am aware there were some broken one prior to this admit but certain which etc), today his upper left incisor appears chipped and cracked and the upper right incisor appears cracked - but that tooth is also decayed and there is not bleeding etc RRR CTAB will continue to board will ask admin how pts dental care and other routine health maintenance needs ( even things as simple as cutting his toesnails) will be addressed if he is going to live in the ER indef re dental care pt would almost certainly need conscious sedation for exam and care I spoke to marvin Tam and both state that they would be willing to take pt to the OR if dental work is necessary - per Dr Tam this would mean infected, aspiration risk, or severe pain still unclear who is actually is POA to consent for OR - SW notes indicate he is his own POA but I do not think he has the capacity to make those decisions in any case the dental work is not emergent so defer to SW and admin and case management social worker to further clarify POA issues and logistics of dealing with post op care , bleeding complications etc no further events today turned over to next shift 12/22/17 07:20 12/22/17 20:58
[2017-12-22] MEDS ORDERED: ACETAMINOPHEN 325 MG TABLET PO STA (19:37)
[2017-12-23] MEDS: LORazepam 0.5 MG TABLET PO SCH ×3 (06:28→21:33)
[2017-12-23] MEDS: QUEtiapine 100 MG TABLET PO SCH ×3 (06:28→21:32)
[2017-12-23] MEDS: carBAMazepine 200 MG TABLET PO SCH ×3 (06:28→21:33)
[2017-12-23] MEDS ORDERED: ACETAMINOPHEN 325 MG TABLET PO STA (10:53)
[2017-12-23] MEDS: LORazepam 0.5 MG TABLET PO PRN (12:12)
[2017-12-24] MEDS: QUEtiapine 100 MG TABLET PO SCH ×4 (05:53→21:42)
[2017-12-24] MEDS: LORazepam 0.5 MG TABLET PO SCH ×3 (05:54→21:42)
[2017-12-24] MEDS: carBAMazepine 200 MG TABLET PO SCH ×3 (05:55→21:42)
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
--- NOTE | 2017-12-24 07:46 | ED Physician Documentation ---
ED Addendum - Addendum Addendum: 12/24/17 07:44 resumed care 7 AM 12/24 pt was seen in ED by dental yesterday Dr Jessenia Tam - see his note - impression was that injured teeth were not infected or risk for aspiration and could be managed conservatively and extraction not required at this time this morning he is ambulating in his room playing a game on a cell phone RRR ARLEYB per note, state case preparer and liner reports pt was again not placed at this weeks meeting 12/22 - will continue to board no acute events today 12/24/17 07:45 12/24/17 07:47 12/24/17 20:22
[2017-12-24] MEDS: LORazepam 0.5 MG TABLET PO PRN (09:08)
[2017-12-25] MEDS: carBAMazepine 200 MG TABLET PO SCH ×3 (06:05→21:50)
[2017-12-25] MEDS: QUEtiapine 100 MG TABLET PO SCH ×3 (06:05→21:50)
[2017-12-25] MEDS: LORazepam 0.5 MG TABLET PO SCH ×3 (06:05→21:50)
--- NOTE | 2017-12-25 07:50 | ED Physician Documentation ---
ED Addendum - Addendum Addendum: 12/25/17 07:49 resumed care again 12/25 no placement, no updates watching Igor movies eating jello RRR CTAB no acute events no sig updates will continue to board 12/25/17 20:58
[2017-12-26] MEDS: LORazepam 0.5 MG TABLET PO PRN (12:38)
[2017-12-26] MEDS: QUEtiapine 100 MG TABLET PO SCH ×2 (13:52→21:43)
[2017-12-26] MEDS: LORazepam 0.5 MG TABLET PO SCH ×2 (13:52→21:43)
[2017-12-26] MEDS: carBAMazepine 200 MG TABLET PO SCH ×2 (13:52→21:43)
--- NOTE | 2017-12-26 18:14 | ED Physician Documentation ---
ED Addendum - Addendum Addendum: Uneventful day. The patient has been doing his normal constant vocalizations, without intelligible words. The few times he became agitated he was able to be calmed without physical restraints. No new information regarding placement. 12/26/17 18:12
[2017-12-27] MEDS: LORazepam 0.5 MG TABLET PO SCH ×3 (06:01→21:32)
[2017-12-27] MEDS: QUEtiapine 100 MG TABLET PO SCH ×3 (06:01→21:32)
[2017-12-27] MEDS: carBAMazepine 200 MG TABLET PO SCH ×3 (06:02→21:33)
[2017-12-27] MEDS: LORazepam 0.5 MG TABLET PO PRN (06:15)
--- NOTE | 2017-12-27 07:39 | ED Physician Documentation ---
ED Addendum - Addendum Addendum: 12/27/17 07:26 Patient rested quietly for most of my shift (overnight 12/26-12/27) until approximately 5:30 AM, when he became very agitated, pounding fists against akbar and door, yelling (incomprehensible, which has been his baseline vocalization). He was given usual morning medications as well as his PRN ativan 2mg PO.
[2017-12-28] MEDS: QUEtiapine 100 MG TABLET PO SCH ×3 (06:09→22:05)
[2017-12-28] MEDS: LORazepam 0.5 MG TABLET PO SCH ×3 (06:09→22:05)
[2017-12-28] MEDS: carBAMazepine 200 MG TABLET PO SCH ×3 (06:09→22:05)
[2017-12-28] MEDS: LORazepam 0.5 MG TABLET PO PRN ×2 (11:12→19:37)
[2017-12-29] MEDS: LORazepam 0.5 MG TABLET PO SCH ×3 (06:00→21:30)
[2017-12-29] MEDS: QUEtiapine 100 MG TABLET PO SCH ×3 (06:00→21:30)
[2017-12-29] MEDS: carBAMazepine 200 MG TABLET PO SCH ×3 (06:00→21:30)
[2017-12-29] MEDS: LORazepam 0.5 MG TABLET PO PRN ×2 (07:21→19:53)
--- NOTE | 2017-12-29 07:25 | ED Physician Documentation ---
ED Addendum - Addendum Addendum: 12/29/17 07:20 assumed care again 7 AM 12/29 per airport duty manager pt has broken his phone and computer those devices were his primary entertainment and consolation during this prolonged boarding stay thus he is angry and agitated this AM he is pacing is his room vocalizing he shows me a piece of paper with the word phone on it and when I did not has a phone he became even more upset and started biting at his L forearm - I stopped him RRR CTAB requested pt be given PRN meds without his electronic devices I anticipate this will be a difficult day no SW update since last week will continue to board pt had a difficult day broke more of his possessions required door to be closed turned over to next shift 12/29/17 19:31
[2017-12-30] MEDS: LORazepam 0.5 MG TABLET PO SCH ×3 (06:10→22:04)
[2017-12-30] MEDS: carBAMazepine 200 MG TABLET PO SCH ×3 (06:10→22:04)
[2017-12-30] MEDS: QUEtiapine 100 MG TABLET PO SCH ×3 (06:10→22:04)
[2017-12-30] MEDS: LORazepam 0.5 MG TABLET PO PRN (11:39)
--- NOTE | 2017-12-30 16:08 | ED Physician Documentation ---
ED Addendum - Addendum Addendum: 12/30/17 16:06 assumed care again 7 AM pt was upset and had his door closed and was pounding on the akbar when I arrived later in the morning he calmed down i went to see him - he is showing me a paper with " mom raudel phone" written on it RRR CTAB mid day his mother came to visit he was very happy and sat with her holding her hand in his rom she brought a replacement phone for him and clean clothes and took his old clothes home for washing when she had to leave, he hugged and kissed her he has been happy and calm with his new phone ever since turned over to next shift 12/30/17 19:32
[2017-12-31] MEDS: LORazepam 0.5 MG TABLET PO PRN ×2 (05:30→20:26)
[2017-12-31] MEDS: QUEtiapine 100 MG TABLET PO SCH ×3 (07:02→21:55)
[2017-12-31] MEDS: carBAMazepine 200 MG TABLET PO SCH ×3 (07:03→21:55)
[2017-12-31] MEDS: LORazepam 0.5 MG TABLET PO SCH ×3 (07:03→21:55)
--- NOTE | 2017-12-31 07:57 | ED Physician Documentation ---
ED Addendum - Addendum Addendum: 12/31/17 07:56 assumed care again 7 AM pt cheerful RRR CTAB no placement updates will continue to board
--- NOTE | 2017-12-31 09:36 | ED Physician Documentation ---
ED Addendum - Addendum Addendum: 12/31/17 09:33 On my shift, overnight 12/30/17-12/31/17, patient was mostly calm and quiet except for brief periods of outbursts involving yelling (incomprehensible sounds) and banging on akbar. He would calm down with reduction of stimuli (door closed, lights turned off). He was taken for a walk by ED staff at 7:15 AM.
--- NOTE | 2018-01-01 07:21 | ED Physician Documentation ---
ED Addendum - Addendum Addendum: 01/01/18 07:19 assumed care again 7 AM 01/01/18 went to see pt 7 AM he is sound asleep - did not awaken him appears in no acute distress 8 AM he is awake and I went to see him RRR CTAB holds out his gait belt to indicate he would like to be taken outside to walk around per SW notes yesterday no placement this week will continue to board no acute events today care turned over to next shift 01/01/18 11:09 01/01/18 18:27
[2018-01-01] MEDS: LORazepam 0.5 MG TABLET PO SCH ×3 (13:44→22:12)
[2018-01-01] MEDS: QUEtiapine 100 MG TABLET PO SCH ×2 (13:44→22:12)
[2018-01-01] MEDS: carBAMazepine 200 MG TABLET PO SCH ×3 (13:45→22:12)
[2018-01-02] MEDS: QUEtiapine 100 MG TABLET PO SCH ×3 (06:07→22:01)
[2018-01-02] MEDS: carBAMazepine 200 MG TABLET PO SCH ×3 (06:07→22:01)
[2018-01-02] MEDS: LORazepam 0.5 MG TABLET PO SCH ×3 (06:07→22:01)
--- NOTE | 2018-01-02 18:18 | ED Physician Documentation ---
ED Addendum - Addendum Addendum: 01/02/18 18:16 Assumed care for the patient at the beginning of shift. At one point in the morning the patient became agitated because his phone was not working fast enough for him. Eventually he allowed staff to help him correct the problem. No further events transpired throughout the course of the day.
[2018-01-03] MEDS: QUEtiapine 100 MG TABLET PO SCH ×3 (05:53→22:05)
[2018-01-03] MEDS: LORazepam 0.5 MG TABLET PO SCH ×3 (05:53→22:05)
[2018-01-03] MEDS: carBAMazepine 200 MG TABLET PO SCH ×3 (05:53→22:05)
--- NOTE | 2018-01-03 07:20 | ED Physician Documentation ---
ED Addendum - Addendum Addendum: 01/03/18 07:20 resumed care again 7 AM 01/03 pt laying on his mattress watching a movie, breakfast at his side still no placement or anticipation of placement will continue to board RRR CTAB hsi front incisors which were cracked in his violent outbursts and which were assessed by Dr Tam about 10 days ago are gradually becoming more and more discolored and now he is holding his mouth and refusing to eat, suspect infection is developing will give tylenol and zmax if no drug interaction and req that dental be re- consulted Friday any dental work will need to be done under anesthesia in the OR asked house sup to have admin/legal/SW start figuring out who would sign consent for this procedure - these discussions were started when pt first cracked his tooth but I am not sure what the final answer was determined to be care turned over to next shift 01/03/18 12:51 01/03/18 14:22 01/03/18 19:35 01/03/18 19:36
[2018-01-03] MEDS ORDERED: AZITHROMYCIN 250 MG TABLET PO STA (12:53)
[2018-01-03] MEDS ORDERED: ACETAMINOPHEN 325 MG TABLET PO STA (12:53)
[2018-01-03] MEDS: LORazepam 0.5 MG TABLET PO PRN (22:52)
[2018-01-04] MEDS: LORazepam 0.5 MG TABLET PO SCH ×3 (06:29→21:29)
[2018-01-04] MEDS: carBAMazepine 200 MG TABLET PO SCH ×3 (06:29→21:29)
[2018-01-04] MEDS: QUEtiapine 100 MG TABLET PO SCH ×3 (06:29→21:29)
[2018-01-04] MEDS ORDERED: ACETAMINOPHEN 325 MG TABLET PO STA ×2 (07:05→19:19)
[2018-01-04] MEDS ORDERED: oxyCODONE 5 MG TABLET PO STA ×2 (11:49→21:12)
--- NOTE | 2018-01-04 11:51 | ED Physician Documentation ---
ED Addendum - Addendum Addendum: 01/04/18 11:50 assumed care again 01/04/18 saw pt about 7 AM he was asleep checked on him again later awake now more subdued than normal moaning in pain given tylenol and oxycodone next dose zmax exam now his top incisors are turning black and one appears to broken further, no facial swelling or trismus RRR CTA on antibiotics awaiting dental eval and procedure no placement updates continues to board pt more subdues than normal, slept much of the day I went to check on him again about 6 Pm awake, laying in bed, staring at the ceiling, no acute distress smiles at me poitns to his teeth RRR CTAB Dr Eugene has been contacted by Dr Fountain and plan is to go to OR for dental work tomorrow on zmax ordered pain meds periodically turned over to next shift 01/04/18 19:19 01/04/18 19:21
--- NOTE | 2018-01-04 13:12 | ED Physician Documentation ---
ED Addendum - Addendum Addendum: 01/04/18 13:11 I have been speaking with the oral surgeon, Dr. Tam, plan is to have the affected teeth pulled tomorrow late afternoon under sedation he would like him n.p.o. after 0800. I spoke with the mom by phone who agrees with the plan.
[2018-01-04] MEDS: AZITHROMYCIN 250 MG TABLET PO SCH (13:53)
[2018-01-04] MEDS ORDERED: LIDOCAINE VISCOUS 2% 15 ML UDC MM STA (21:13)
[2018-01-04] MEDS ORDERED: CHLORHEXIDINE GLUCONATE 15 ML UDC PO ONE (21:20)
[2018-01-04] MEDS ORDERED: CHLORHEXIDINE GLUCONATE 15 ML UDC PO SCH (22:00)
[2018-01-05] MEDS ORDERED: ACETAMINOPHEN 500 MG TABLET PO STA (06:40)
[2018-01-05] MEDS: QUEtiapine 100 MG TABLET PO SCH ×3 (06:41→22:00)
[2018-01-05] MEDS: carBAMazepine 200 MG TABLET PO SCH ×3 (06:41→22:00)
[2018-01-05] MEDS: LORazepam 0.5 MG TABLET PO SCH ×3 (06:41→22:00)
[2018-01-05] MEDS ORDERED: LIDOCAINE VISCOUS 2% 100 ML BOTTLE MM STA (06:41)
[2018-01-05] MEDS ORDERED: LIDOCAINE VISCOUS 2% 15 ML UDC MM STA (08:25)
[2018-01-05] MEDS: LORazepam 0.5 MG TABLET PO PRN (08:33)
[2018-01-05] MEDS: AZITHROMYCIN 250 MG TABLET PO SCH ×2 (08:34→08:40)
[2018-01-05] MEDS: CHLORHEXIDINE GLUCONATE 15 ML UDC PO SCH (08:34)
[2018-01-06] MEDS: carBAMazepine 200 MG TABLET PO SCH ×4 (06:37→21:40)
[2018-01-06] MEDS: QUEtiapine 100 MG TABLET PO SCH ×3 (06:37→21:39)
[2018-01-06] MEDS: LORazepam 0.5 MG TABLET PO SCH ×3 (06:37→21:39)
[2018-01-06] MEDS ORDERED: oxyCODONE 5 MG TABLET PO STA ×2 (07:31→19:57)
--- NOTE | 2018-01-06 07:36 | ED Physician Documentation ---
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 but feel important to manage his pain until surgery tomorrow pt mom came to visit and he was happy while she was heree but agitated after she left about 7 PM pain meds seemed to wear off and he is moaning in pain again - another dose ordered OR staff have been coordinating with nurse primary health organisation manager all day and all preop issues have been addressed and surgery is on for tomorrow I suggested a face mask or football helmet for post op recovery as pt is prone to hitting his face on things and biting and that will make his extractions bleed and that will be very difficult to manage as pt is so uncooperative and prone to biting - unfortunately this item was not bale to be secured at this time night nurses aware that AM meds need to be given early turned over to next shift 01/06/18 19:58
[2018-01-06] MEDS: AZITHROMYCIN 250 MG TABLET PO SCH (07:56)
[2018-01-06] MEDS: LORazepam 0.5 MG TABLET PO PRN (11:51)
[2018-01-07] MEDS: LORazepam 0.5 MG TABLET PO SCH ×3 (04:55→21:57)
[2018-01-07] MEDS: carBAMazepine 200 MG TABLET PO SCH ×3 (04:55→21:57)
[2018-01-07] MEDS: QUEtiapine 100 MG TABLET PO SCH ×3 (04:55→21:57)
[2018-01-07] MEDS ORDERED: CHLORHEXIDINE GLUCONATE 15 ML UDC PO ONE (06:45)
[2018-01-07] MEDS ORDERED: LIDOCAINE MPF 2%-EPI 1:200000 20 ML VIAL ONE (06:51)
[2018-01-07] MEDS ORDERED: BUPIVACAINE 0.5%-EPI 1:200000 PF 10 ML VIAL ONE (06:52)
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
[2018-01-07] MEDS ORDERED: oxyCODONE 5 MG TABLET PO STA (09:21)
[2018-01-07] MEDS: LORazepam 0.5 MG TABLET PO PRN (09:23)
[2018-01-07] MEDS: AZITHROMYCIN 250 MG TABLET PO SCH (14:28)
[2018-01-08] MEDS: QUEtiapine 100 MG TABLET PO SCH ×3 (06:13→22:07)
[2018-01-08] MEDS: LORazepam 0.5 MG TABLET PO SCH ×3 (06:13→22:07)
[2018-01-08] MEDS: CHLORHEXIDINE GLUCONATE 15 ML UDC PO SCH ×2 (06:19→22:09)
[2018-01-08] MEDS: carBAMazepine 200 MG TABLET PO SCH ×3 (06:19→22:07)
--- NOTE | 2018-01-08 08:07 | ED Physician Documentation ---
ED Addendum - Addendum Addendum: 01/08/18 08:05 assumed care again 7 AM 01/08/18 pt mother here again to help him recover from his dental work he seems happy sitting on his mattress watching movies on the new phone mom brought to replace the last one he broke mouth - no bleeding or evidence of dry socket, no swelling, he does not hold his mouth to indicate pain RRR CTAB continues to board awaiting SW update re conference call and [place] visit yesterday no acute events today - did seem uncomfortable mis shift so ordered a dose of pain meds with apparent relief turned over to the next shift 01/08/18 17:59
[2018-01-08] MEDS: LORazepam 0.5 MG TABLET PO PRN (10:43)
[2018-01-08] MEDS ORDERED: oxyCODONE 5 MG TABLET PO STA (11:00)
[2018-01-09] MEDS: LORazepam 0.5 MG TABLET PO SCH ×3 (06:30→22:11)
[2018-01-09] MEDS: carBAMazepine 200 MG TABLET PO SCH ×3 (06:30→22:11)
[2018-01-09] MEDS: QUEtiapine 100 MG TABLET PO SCH ×3 (06:30→22:11)
--- NOTE | 2018-01-09 08:56 | ED Physician Documentation ---
ED Addendum - Addendum Addendum: 01/09/18 08:54 Patient underwent dental extractions 01/07/18. On my shift, overnight 01/08-01/09, he rested quietly and in NAD during my entire shift. He did not have any outbursts or loud or aggressive behavior during this overnight shift.
[2018-01-09] MEDS ORDERED: IBUPROFEN 800 MG TABLET PO STA (10:13)
[2018-01-09] MEDS ORDERED: CHLORHEXIDINE GLUCONATE 15 ML UDC PO SCH (11:00)
[2018-01-09] MEDS: CHLORHEXIDINE GLUCONATE 15 ML UDC PO SCH (14:08)
[2018-01-09] MEDS: LORazepam 0.5 MG TABLET PO PRN (19:40)
[2018-01-10] MEDS: LORazepam 0.5 MG TABLET PO SCH ×2 (07:06→13:32)
[2018-01-10] MEDS: QUEtiapine 100 MG TABLET PO SCH ×2 (07:06→13:32)
[2018-01-10] MEDS: carBAMazepine 200 MG TABLET PO SCH ×2 (07:07→13:32)
[2018-01-10] MEDS: LORazepam 0.5 MG TABLET PO PRN (20:01)
[2018-01-11] MEDS: carBAMazepine 200 MG TABLET PO SCH ×4 (00:16→22:01)
[2018-01-11] MEDS: LORazepam 0.5 MG TABLET PO SCH ×4 (00:16→22:01)
[2018-01-11] MEDS: QUEtiapine 100 MG TABLET PO SCH ×4 (00:16→22:01)
[2018-01-11] MEDS: LORazepam 0.5 MG TABLET PO PRN ×2 (02:28→10:56)
[2018-01-11] MEDS ORDERED: OLANZapine ODT 5 MG TABLET TL STA (12:08)
[2018-01-12] MEDS: carBAMazepine 200 MG TABLET PO SCH ×2 (05:58→22:06)
[2018-01-12] MEDS: QUEtiapine 100 MG TABLET PO SCH ×2 (05:58→22:06)
[2018-01-12] MEDS: LORazepam 0.5 MG TABLET PO SCH ×2 (05:58→22:06)
[2018-01-13] MEDS: LORazepam 0.5 MG TABLET PO SCH ×3 (06:04→21:56)
[2018-01-13] MEDS: QUEtiapine 100 MG TABLET PO SCH ×3 (06:04→21:56)
[2018-01-13] MEDS: carBAMazepine 200 MG TABLET PO SCH ×3 (06:04→21:56)
[2018-01-13] MEDS ORDERED: OLANZapine 10 MG VIAL IM STA ×2 (13:50→21:42)
[2018-01-13] MEDS ORDERED: LORazepam 2 MG/ML VIAL IVP STA (13:50)
--- NOTE | 2018-01-13 13:51 | ED Physician Documentation ---
ED Addendum - Addendum Addendum: 01/13/18 13:50 He seemed at his baseline when I arrived for my shift. Asking for money, watching videos. Around 130 who became distinctly much more agitated than usual slamming on the doors and wall very loudly and attempts at verbal de- escalation failed. He was administered IM medications.
--- NOTE | 2018-01-13 16:51 | ED Physician Documentation ---
ED Addendum - Addendum Addendum: 01/13/18 16:50 Curtis has intermittent bouts of rage that are set off by frustration with delayed gratification. We are trying some prozac to modulate the rage response. (intermittent explosive disorder) 01/13/18 17:18
[2018-01-13] MEDS ORDERED: FLUoxetine 10 MG CAPSULE PO SCH (17:00)
[2018-01-13] MEDS ORDERED: LORazepam 2 MG/ML VIAL IM STA (21:42)
[2018-01-14] MEDS: carBAMazepine 200 MG TABLET PO SCH ×3 (06:16→23:00)
[2018-01-14] MEDS: LORazepam 0.5 MG TABLET PO SCH ×3 (06:16→23:00)
[2018-01-14] MEDS: QUEtiapine 100 MG TABLET PO SCH ×3 (06:16→23:00)
[2018-01-14] MEDS: FLUoxetine 10 MG CAPSULE PO SCH (23:00)
--- NOTE | 2018-01-15 07:46 | ED Physician Documentation ---
ED Addendum - Addendum Addendum: 01/15/18 07:41 Patient rested and slept quietly for most of my shift after case signed out to me by previous physician at 11 PM. At approximately 6:15 AM, patient awoke and was mildly agitated; he was then given his morning medications which he took as soon as they were handed to him. He calmed with RN and security talking to him, and he also seemed to calm when given a snack. He is awake and alert and in NAD at end of my shift.
[2018-01-15] MEDS: QUEtiapine 100 MG TABLET PO SCH ×2 (14:00→21:04)
[2018-01-15] MEDS: carBAMazepine 200 MG TABLET PO SCH ×2 (14:00→21:04)
[2018-01-15] MEDS: LORazepam 0.5 MG TABLET PO SCH ×2 (14:00→21:04)
[2018-01-15] MEDS: FLUoxetine 10 MG CAPSULE PO SCH (21:04)
[2018-01-16] MEDS: QUEtiapine 100 MG TABLET PO SCH ×3 (06:30→22:18)
[2018-01-16] MEDS: LORazepam 0.5 MG TABLET PO SCH ×3 (06:30→22:18)
[2018-01-16] MEDS: carBAMazepine 200 MG TABLET PO SCH ×3 (06:30→22:18)
--- NOTE | 2018-01-16 13:08 | ED Physician Documentation ---
ED Addendum - Addendum Addendum: 01/16/18 13:05 Curtis has had a good day and appears to tolerate the prozac. His dose is increased to 20mg daily. The retirement objective with this medication is for reduction in violent outbursts by treatment of intermittent explosive disorder, with the intention of improving his chances of placement.
[2018-01-16] MEDS: FLUoxetine 10 MG CAPSULE PO SCH (14:45)
[2018-01-17] MEDS: LORazepam 0.5 MG TABLET PO SCH ×3 (06:01→21:38)
[2018-01-17] MEDS: carBAMazepine 200 MG TABLET PO SCH ×3 (06:01→21:38)
[2018-01-17] MEDS: QUEtiapine 100 MG TABLET PO SCH ×3 (06:01→21:38)
[2018-01-17] MEDS: FLUoxetine 10 MG CAPSULE PO SCH (10:06)
[2018-01-18] MEDS: QUEtiapine 100 MG TABLET PO SCH ×3 (06:00→21:41)
[2018-01-18] MEDS: LORazepam 0.5 MG TABLET PO SCH ×3 (06:00→21:41)
[2018-01-18] MEDS: carBAMazepine 200 MG TABLET PO SCH ×3 (06:01→21:41)
[2018-01-18] MEDS: FLUoxetine 10 MG CAPSULE PO SCH (10:54)
[2018-01-19] MEDS: LORazepam 0.5 MG TABLET PO SCH ×3 (06:03→20:49)
[2018-01-19] MEDS: QUEtiapine 100 MG TABLET PO SCH ×3 (06:03→20:48)
[2018-01-19] MEDS: carBAMazepine 200 MG TABLET PO SCH ×3 (06:04→20:49)
[2018-01-19] MEDS: FLUoxetine 10 MG CAPSULE PO SCH (10:28)
[2018-01-19] MEDS: LORazepam 0.5 MG TABLET PO PRN (20:48)
[2018-01-20] MEDS: carBAMazepine 200 MG TABLET PO SCH ×3 (05:40→21:33)
[2018-01-20] MEDS: LORazepam 0.5 MG TABLET PO SCH ×3 (05:41→21:33)
[2018-01-20] MEDS: QUEtiapine 100 MG TABLET PO SCH ×3 (05:41→21:33)
[2018-01-20] MEDS: FLUoxetine 10 MG CAPSULE PO SCH (10:15)
[2018-01-20] MEDS: LORazepam 0.5 MG TABLET PO PRN ×2 (13:22→20:35)
[2018-01-21] MEDS: carBAMazepine 200 MG TABLET PO SCH ×4 (06:01→21:29)
[2018-01-21] MEDS: QUEtiapine 100 MG TABLET PO SCH ×3 (06:02→21:28)
[2018-01-21] MEDS: LORazepam 0.5 MG TABLET PO SCH ×3 (06:02→21:29)
[2018-01-21] MEDS: FLUoxetine 10 MG CAPSULE PO SCH (10:03)
[2018-01-21] MEDS: LORazepam 0.5 MG TABLET PO PRN (14:28)
[2018-01-22] MEDS: QUEtiapine 100 MG TABLET PO SCH ×2 (06:45→16:07)
[2018-01-22] MEDS: LORazepam 0.5 MG TABLET PO SCH ×2 (06:45→16:07)
[2018-01-22] MEDS: carBAMazepine 200 MG TABLET PO SCH ×2 (06:45→16:07)
[2018-01-22] MEDS: FLUoxetine 10 MG CAPSULE PO SCH (16:06)
--- NOTE | 2018-01-22 17:01 | ED Physician Documentation ---
ED Addendum - Addendum Addendum: 01/22/18 16:52 Fluoxetine was begun on Curtis on 01/16/2018 and he has now been on this medication for 6 days. We have not yet seen an improvement in his outburst behaviors. He does continue to have periodic outbursts of violent behavior with self-injurious behavior and this has been mitigated by locking the door to his room and allowing him to complete his tantrum. This has improved our staff relationship and our interaction with Curtis as we are not being assaulted by him. He does have some issues that seem to set him off. Most consistently this is poorly functioning electronic devices causing frustration and escalation of his behavior. He has broken all of the electronic devices he has been given. Despite not having electronic devices he still has cyclic periods of time when his behavior becomes aggressive and angry. We have not been able to demonstrate that starting him on Prozac has changed these behaviors. There is an additional trigger that his room sits directly across from a critical care area in the emergency department and periodically there are serious medical problems of other patient's and some of these have involved of patients and he appears to react to the moods and actions of the staff involved in the care of these patients and their family. He will have periods of time of escalation of behavior following critical events and at times when there is excess of volume in the emergency department. These have caused issues with staff as well. They happen when care is needed in other parts of the department. Today his behavior h as escalated again and the DCR has been dispatched.
[2018-01-22] MEDS: LORazepam 0.5 MG TABLET PO PRN (20:20)
[2018-01-23] MEDS: carBAMazepine 200 MG TABLET PO SCH ×4 (02:47→22:00)
[2018-01-23] MEDS: QUEtiapine 100 MG TABLET PO SCH ×4 (02:48→22:00)
[2018-01-23] MEDS: LORazepam 0.5 MG TABLET PO SCH ×4 (02:48→22:00)
--- NOTE | 2018-01-23 06:32 | ED Physician Documentation ---
ED Addendum - Addendum Addendum: 01/23/18 06:26 At the beginning of my shift (8 PM 01/22/18), patient was banging loudly on akbar , pounding with both fists. He continued to do this for nearly the first hour of my shift despite staff trying repeatedly to calm him and instruct him to sit down and stop his outburst. During his outburst, the door to the room was kept closed for patient and staff safety. He subsequently calmed down, but then started again at a few hours later (approximately 1 AM). He had not been given his night medication earlier because he had received a PRN medication and this had calmed him, and thus he was allowed to sleep rather than wake him for his medications. The night medications were then given at approximately 1 AM and soon afterwards he calmed and then slept for the remainder of my shift (signed out at 7 AM 01/23/18)
[2018-01-23] MEDS: FLUoxetine 10 MG CAPSULE PO SCH (09:50)
[2018-01-23] MEDS: LORazepam 0.5 MG TABLET PO PRN (14:52)
[2018-01-24] MEDS: QUEtiapine 100 MG TABLET PO SCH ×3 (06:40→23:09)
[2018-01-24] MEDS: LORazepam 0.5 MG TABLET PO SCH ×3 (06:40→23:09)
[2018-01-24] MEDS: carBAMazepine 200 MG TABLET PO SCH ×3 (06:40→23:09)
[2018-01-24] MEDS: FLUoxetine 10 MG CAPSULE PO SCH (09:13)
[2018-01-24] MEDS: LORazepam 0.5 MG TABLET PO PRN (20:24)
[2018-01-25] MEDS: QUEtiapine 100 MG TABLET PO SCH ×3 (06:02→22:00)
[2018-01-25] MEDS: carBAMazepine 200 MG TABLET PO SCH ×3 (06:02→22:01)
[2018-01-25] MEDS: LORazepam 0.5 MG TABLET PO SCH ×3 (06:02→22:00)
[2018-01-25] MEDS: FLUoxetine 10 MG CAPSULE PO SCH (09:53)
[2018-01-25] MEDS: LORazepam 0.5 MG TABLET PO PRN (12:37)
[2018-01-26] MEDS: LORazepam 0.5 MG TABLET PO SCH ×3 (06:07→21:48)
[2018-01-26] MEDS: QUEtiapine 100 MG TABLET PO SCH ×3 (06:07→21:48)
[2018-01-26] MEDS: carBAMazepine 200 MG TABLET PO SCH ×3 (06:08→21:48)
[2018-01-26] MEDS: FLUoxetine 10 MG CAPSULE PO SCH (09:09)
[2018-01-26] MEDS: LORazepam 0.5 MG TABLET PO PRN (18:07)
[2018-01-27] MEDS: QUEtiapine 100 MG TABLET PO SCH ×3 (06:10→22:49)
[2018-01-27] MEDS: LORazepam 0.5 MG TABLET PO SCH ×3 (06:10→23:08)
[2018-01-27] MEDS: carBAMazepine 200 MG TABLET PO SCH ×3 (06:10→22:49)
--- NOTE | 2018-01-27 07:47 | ED Physician Documentation ---
ED Addendum - Addendum Addendum: 01/27/18 07:46 assumed care again 7 AM 01/27/18 reviewed SW notes - no placement of anticipation of placement has been accomplished went to see pt he is laying on his mattress on the floor playing with his phone his dental extraction site appears to have healed well with no trismus swelling erythema dry socket or bleeding RRR CTAB no acute medical issues social / placement issues will continue to board pt phone broke he escalated hurling himself against the wall and hitting himself in the head DCR Mariel came and saw pt during his escalation she will detain if a facility will accept him - potential facilities will need to encompass DD services no accepting facility found - see DCR notes per DCR the issue seems to be that the pt cannot be placed until detained and he cannot be detained until he is placed - this is because [facility] does not do 1 bed certs - perhaps if a court order could be obtained to authorize court ordered treatment, this would start the process - but again this cannot occur because of no one bed cert capability at [facility] 01/27/18 13:13 01/27/18 19:59
[2018-01-27] MEDS: FLUoxetine 10 MG CAPSULE PO SCH (08:00)
[2018-01-27] MEDS: LORazepam 0.5 MG TABLET PO PRN (17:24)
[2018-01-27] MEDS ORDERED: LORazepam 0.5 MG TABLET PO STA (23:07)
[2018-01-28] MEDS: LORazepam 0.5 MG TABLET PO SCH ×3 (06:47→22:20)
[2018-01-28] MEDS: carBAMazepine 200 MG TABLET PO SCH ×3 (06:47→22:20)
[2018-01-28] MEDS: QUEtiapine 100 MG TABLET PO SCH ×3 (06:47→22:20)
--- NOTE | 2018-01-28 07:24 | ED Physician Documentation ---
ED Addendum - Addendum Addendum: 01/28/18 07:23 assumed care again 01/28/18 went to see pt he is sitting on his mattress he holds up a sign stating phone (he broke his yesterday and wants a new one) RRR CTAB no updates no placement continues to board indef for social reasons no acute medical issues 01/28/18 07:28 01/28/18 19:32
[2018-01-28] MEDS: FLUoxetine 10 MG CAPSULE PO SCH (09:30)
[2018-01-28] MEDS: LORazepam 0.5 MG TABLET PO PRN (13:09)
[2018-01-29] MEDS: carBAMazepine 200 MG TABLET PO SCH ×3 (06:46→22:15)
[2018-01-29] MEDS: QUEtiapine 100 MG TABLET PO SCH ×3 (06:46→22:15)
[2018-01-29] MEDS: LORazepam 0.5 MG TABLET PO SCH ×3 (06:46→22:15)
--- NOTE | 2018-01-29 08:59 | ED Physician Documentation ---
ED Addendum - Addendum Addendum: 01/29/18 08:57 resumed care 7 AM 01/29/18 went to see pt sitting on floor writing "Igor" in his notebook RRR CTAB no placement continues to board pt very agitated all afternoon pounding on the akbar and door there was a multi agency meeting today about him and placement concerns - await SW note update - but remains in the ED still 01/29/18 19:24
[2018-01-29] MEDS: FLUoxetine 10 MG CAPSULE PO SCH (10:07)
[2018-01-30] MEDS: carBAMazepine 200 MG TABLET PO SCH ×3 (06:02→21:10)
[2018-01-30] MEDS: LORazepam 0.5 MG TABLET PO SCH ×3 (06:02→21:10)
[2018-01-30] MEDS: QUEtiapine 100 MG TABLET PO SCH ×3 (06:02→21:10)
[2018-01-30] MEDS: FLUoxetine 10 MG CAPSULE PO SCH (08:52)
[2018-01-30] MEDS: LORazepam 0.5 MG TABLET PO PRN (23:25)
[2018-01-31] MEDS: carBAMazepine 200 MG TABLET PO SCH ×3 (07:00→22:00)
[2018-01-31] MEDS: LORazepam 0.5 MG TABLET PO SCH ×3 (07:00→22:00)
[2018-01-31] MEDS: QUEtiapine 100 MG TABLET PO SCH ×3 (07:00→22:00)
[2018-01-31] MEDS: FLUoxetine 10 MG CAPSULE PO SCH (09:50)
[2018-02-01] MEDS: FLUoxetine 10 MG CAPSULE PO SCH (09:30)
[2018-02-01] MEDS ORDERED: OLANZapine 10 MG VIAL IM STA (12:32)
[2018-02-01] MEDS ORDERED: OLANZapine 10 MG VIAL IM ONE (12:32)
[2018-02-01] MEDS ORDERED: WATER FOR INJECTION,STERILE 10 ML ONE (12:33)
[2018-02-01] MEDS: carBAMazepine 200 MG TABLET PO SCH ×2 (13:30→22:06)
[2018-02-01] MEDS: QUEtiapine 100 MG TABLET PO SCH ×2 (13:30→22:06)
[2018-02-01] MEDS: LORazepam 0.5 MG TABLET PO SCH ×2 (13:30→22:06)
[2018-02-01] MEDS: LORazepam 0.5 MG TABLET PO PRN (16:30)
[2018-02-02] MEDS: QUEtiapine 100 MG TABLET PO SCH ×3 (06:22→21:51)
[2018-02-02] MEDS: LORazepam 0.5 MG TABLET PO SCH ×3 (06:22→21:51)
[2018-02-02] MEDS: carBAMazepine 200 MG TABLET PO SCH ×3 (06:22→21:51)
[2018-02-02] MEDS: FLUoxetine 10 MG CAPSULE PO SCH (09:08)
[2018-02-03] MEDS: QUEtiapine 100 MG TABLET PO SCH ×3 (06:24→21:29)
[2018-02-03] MEDS: carBAMazepine 200 MG TABLET PO SCH ×3 (06:24→21:29)
[2018-02-03] MEDS: LORazepam 0.5 MG TABLET PO SCH ×3 (06:24→21:29)
[2018-02-03] MEDS: FLUoxetine 10 MG CAPSULE PO SCH (11:03)
[2018-02-04] MEDS: LORazepam 0.5 MG TABLET PO SCH ×3 (05:42→21:44)
[2018-02-04] MEDS: carBAMazepine 200 MG TABLET PO SCH ×3 (05:42→21:44)
[2018-02-04] MEDS: QUEtiapine 100 MG TABLET PO SCH ×3 (05:42→21:44)
[2018-02-04] MEDS: FLUoxetine 10 MG CAPSULE PO SCH (09:00)
[2018-02-04] MEDS: LORazepam 0.5 MG TABLET PO PRN (12:27)
[2018-02-04] MEDS ORDERED: A & D OINTMENT 5 GM PACKET TOP STA (16:10)
[2018-02-05] MEDS: QUEtiapine 100 MG TABLET PO SCH ×2 (06:03→14:40)
[2018-02-05] MEDS: LORazepam 0.5 MG TABLET PO SCH ×2 (06:04→14:40)
[2018-02-05] MEDS: carBAMazepine 200 MG TABLET PO SCH ×2 (06:04→14:40)
[2018-02-05] MEDS: FLUoxetine 10 MG CAPSULE PO SCH (14:40)
[2018-02-05] MEDS ORDERED: OLANZapine 10 MG VIAL IM STA (15:52)
[2018-02-05] MEDS ORDERED: LORazepam 2 MG/ML VIAL IVP STA (15:52)
[2018-02-06] MEDS: LORazepam 0.5 MG TABLET PO SCH (06:03)
[2018-02-06] MEDS: carBAMazepine 200 MG TABLET PO SCH ×3 (06:03→22:03)
[2018-02-06] MEDS: QUEtiapine 100 MG TABLET PO SCH ×3 (06:03→22:02)
[2018-02-06] MEDS ORDERED: LORazepam 1 MG TABLET PO PRN (07:30)
[2018-02-06] MEDS: FLUoxetine 10 MG CAPSULE PO SCH (11:23)
[2018-02-06] MEDS: LORazepam 1 MG TABLET PO SCH ×2 (13:52→22:03)
[2018-02-07] MEDS: LORazepam 1 MG TABLET PO SCH ×3 (05:57→22:03)
[2018-02-07] MEDS: QUEtiapine 100 MG TABLET PO SCH ×3 (05:57→22:03)
[2018-02-07] MEDS: carBAMazepine 200 MG TABLET PO SCH ×3 (05:57→22:03)
[2018-02-07] MEDS: FLUoxetine 10 MG CAPSULE PO SCH (08:46)
[2018-02-07] MEDS ORDERED: BACITRACIN OINT TOP ONE (18:10)
[2018-02-08] MEDS: carBAMazepine 200 MG TABLET PO SCH ×5 (05:47→21:57)
[2018-02-08] MEDS: QUEtiapine 100 MG TABLET PO SCH ×5 (05:47→21:57)
[2018-02-08] MEDS: LORazepam 1 MG TABLET PO SCH ×3 (05:47→21:57)
[2018-02-08] MEDS: FLUoxetine 10 MG CAPSULE PO SCH (10:03)
[2018-02-09] MEDS: LORazepam 1 MG TABLET PO SCH ×3 (06:05→22:01)
[2018-02-09] MEDS: QUEtiapine 100 MG TABLET PO SCH ×3 (06:05→22:01)
[2018-02-09] MEDS: carBAMazepine 200 MG TABLET PO SCH ×3 (06:05→22:01)
[2018-02-09] MEDS: FLUoxetine 10 MG CAPSULE PO SCH (09:09)
[2018-02-09] MEDS ORDERED: PETROLATUM WHITE 5 GM PACKET TOP STA (13:11)
[2018-02-09] MEDS ORDERED: LORazepam 2 MG/ML VIAL IM STA (22:09)
[2018-02-09] MEDS ORDERED: OLANZapine 10 MG VIAL IM STA (22:09)
[2018-02-10] MEDS: QUEtiapine 100 MG TABLET PO SCH ×3 (06:06→22:23)
[2018-02-10] MEDS: carBAMazepine 200 MG TABLET PO SCH ×3 (06:06→22:23)
[2018-02-10] MEDS: LORazepam 1 MG TABLET PO SCH ×3 (06:06→22:23)
[2018-02-10] MEDS: FLUoxetine 10 MG CAPSULE PO SCH (09:00)
[2018-02-11] MEDS: LORazepam 1 MG TABLET PO SCH ×3 (06:43→21:50)
[2018-02-11] MEDS: carBAMazepine 200 MG TABLET PO SCH ×3 (06:43→21:50)
[2018-02-11] MEDS: QUEtiapine 100 MG TABLET PO SCH ×3 (06:43→21:49)
[2018-02-11] MEDS: FLUoxetine 10 MG CAPSULE PO SCH (09:00)
[2018-02-12] MEDS: LORazepam 1 MG TABLET PO SCH ×3 (06:37→21:51)
[2018-02-12] MEDS: QUEtiapine 100 MG TABLET PO SCH ×3 (06:37→21:51)
[2018-02-12] MEDS: carBAMazepine 200 MG TABLET PO SCH ×3 (06:37→21:51)
[2018-02-12] MEDS: FLUoxetine 10 MG CAPSULE PO SCH (09:18)
[2018-02-13] MEDS: LORazepam 1 MG TABLET PO SCH ×3 (06:59→22:05)
[2018-02-13] MEDS: carBAMazepine 200 MG TABLET PO SCH ×3 (06:59→22:05)
[2018-02-13] MEDS: QUEtiapine 100 MG TABLET PO SCH ×3 (06:59→22:05)
[2018-02-13] MEDS: FLUoxetine 10 MG CAPSULE PO SCH (10:55)
--- NOTE | 2018-02-13 14:36 | ED Physician Documentation ---
ED Addendum - Addendum Addendum: 02/13/18 14:35 Patient continues to board in the ER awaiting placement. No acute issues today. Transport being arranged to [place] for 02/16, COBRA forms completed by Dr. Fountain last night and I filled out the PCS form today for ambulance. Patient taken for a walk by ER staff today.
[2018-02-14] MEDS: carBAMazepine 200 MG TABLET PO SCH ×3 (06:11→22:19)
[2018-02-14] MEDS: QUEtiapine 100 MG TABLET PO SCH ×3 (06:11→22:19)
[2018-02-14] MEDS: LORazepam 1 MG TABLET PO SCH ×3 (06:12→22:19)
[2018-02-14] MEDS: FLUoxetine 10 MG CAPSULE PO SCH (09:17)
[2018-02-14] MEDS ORDERED: ACETAMINOPHEN 325 MG TABLET PO STA (18:20)
[2018-02-15] MEDS: QUEtiapine 100 MG TABLET PO SCH ×3 (06:17→22:02)
[2018-02-15] MEDS: LORazepam 1 MG TABLET PO SCH ×3 (06:17→22:02)
[2018-02-15] MEDS: carBAMazepine 200 MG TABLET PO SCH ×3 (06:18→22:02)
--- NOTE | 2018-02-15 07:23 | ED Physician Documentation ---
ED Addendum - Addendum Addendum: 02/15/18 07:18 assumed care 7 AM 02/15/18 went to see pt he is sitting on his mattress playing with his phone security advises me pt had a severe aggressive outburst yesterday and was hitting his head on the wall presently calm and cooperative head with some small aged bruising to forehead no lac seen skull NT no george sign or richie-orbital ecchymosis PERRL dried blood to lips - no tongue lip or new dental injury seen to extent pt will cooperate with exam skull and spine NT RRR CTAB moving all ext no visible deformities per notes pt has been accepted at [facility], bed has been confirmed, accepting doctor identified, COBRA forms complete, ambulance approved and scheduled for 93 0 tomorrow morning pt had an uneventful day shift - turned over to next shift 02/15/18 17:46
[2018-02-15] MEDS: FLUoxetine 10 MG CAPSULE PO SCH (10:00)
[2018-02-16] MEDS: carBAMazepine 200 MG TABLET PO SCH (06:01)
[2018-02-16] MEDS: QUEtiapine 100 MG TABLET PO SCH (06:01)
[2018-02-16] MEDS: LORazepam 1 MG TABLET PO SCH (06:01)
--- NOTE | 2018-02-16 08:18 | ED Physician Documentation ---
ED Addendum - Addendum Addendum: 02/16/18 08:16 assumed care 8 AM today is the day pt is to be transferred to [place] for [facility] residential placement went to see pt 8 AM he is playing with phone and some of his favorite staff members are in the room with him RRR CTAB nursing rec pt be medicated for agitation prior to EMS arrival to help safe transport - pt does not tolerate changes in schedule well so this seems reasonable - ordered ativan 2 PO to be given 45 min prior to departure EMS arrived for transport wanted another set of vitals prior to departure pt was very amped up and excited and pacing around his room - HR was 120 - no fever etc - i believe this to be due to his agitation and excitement and not sepsis etc proceed with transfer 02/16/18 08:18 02/16/18 08:19 02/16/18 10:39 02/16/18 13:27
[2018-02-16] MEDS ORDERED: LORazepam 0.5 MG TABLET PO STA (08:20)
[2018-02-16] MEDS: FLUoxetine 10 MG CAPSULE PO SCH (08:52)
[2018-02-16 10:14] VITALS: BP 115/90
== END 2018-02-16 10:03 ==
LOC: EDUNIT# → ED 04:39 → SUPCPDRO 04:39 → ED 02-16 10:03
DX: F91.9 Conduct disorder, unspecified (principal); F84.0 Autistic disorder; R45.1 Restlessness and agitation; F63.81 Intermittent explosive disorder; K02.9 Dental caries, unspecified; T50.906A Underdosing of unspecified drugs, medicaments and biological substances, initial encounter; S09.93XA Unspecified injury of face, initial encounter; R68.84 Jaw pain; S02.5XXA Fracture of tooth (traumatic), initial encounter for closed fracture; W22.09XA Striking against other stationary object, initial encounter; Y93.89 Activity, other specified; Z91.83 Wandering in diseases classified elsewhere; Y92.538 Other ambulatory health services establishments as the place of occurrence of the external cause; Z91.5 Personal history of self-harm; Z78.1 Physical restraint status; Z91.138 Patient's unintentional underdosing of medication regimen for other reason; Z75.1 Person awaiting admission to adequate facility elsewhere; Z76.4 Other boarder to healthcare facility
CPT/HCPCS: 41899; 96372; 96374; 99285; A9270; J0690; J1200; J2060; J8499; Q3014

== ENCOUNTER 2018-01-07 06:39 | Day surgery (SDC) | payer MEDICAID ==
[~2018-01-07 06:39] MED LIST: DEXMEDETOMIDINE 400 MCG/100 ML 100 ML IV ONE
[2018-01-07] MEDS ORDERED: ceFAZolin 2 GM/50 ML 2 GM/50 ML BAG IV ONE (06:42)
[2018-01-07] MEDS ORDERED: BUPIVACAINE 0.5%-EPI 1:200000 PF 30 ML VIAL SUBQ ONE ×2 (07:30)
[2018-01-07] MEDS ORDERED: LIDOCAINE MPF 2%-EPI 1:200000 20 ML VIAL SUBQ ONE ×2 (07:30)
[2018-01-07] MEDS ORDERED: KETOROLAC 30 MG/ML VIAL IVP ONE (08:00)
[2018-01-07] MEDS ORDERED: DEXAMETHASONE 4 MG/ML VIAL IVP ONE (08:00)
[2018-01-07] MEDS ORDERED: ONDANSETRON 4 MG/2 ML VIAL IVP ONE (08:00)
[2018-01-07] MEDS ORDERED: GLYCOPYRROLATE 1 MG/5 ML VIAL IVP ONE (08:00)
[2018-01-07] MEDS ORDERED: KETAMINE 500 MG/10 ML VIAL IVP ONE (08:00)
[2018-01-07] MEDS ORDERED: NEOSTIGMINE 1 MG/1 ML 10 ML MDV IVP ONE (08:00)
[2018-01-07] MEDS ORDERED: PROPOFOL 200 MG/20 ML VIAL IVP ONE (08:00)
[2018-01-07] MEDS ORDERED: ROCURONIUM 50 MG/5 ML VIAL IVP ONE (08:00)
[2018-01-07 08:42] VITALS: BP 134/95
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
== END 2018-01-07 06:40 | disposition home or self-care (01) ==
LOC: SDS 06:39
PROVIDERS: ATTEND Dentist Oral and Maxillofacial Surgery
PROC: 0CTW0Z1 Resection of Upper Tooth, Multiple, Open Approach (ICD-10-PCS; principal; 2018-01-07 07:00)
DX: S02.5XXA Fracture of tooth (traumatic), initial encounter for closed fracture (principal); W22.8XXA Striking against or struck by other objects, initial encounter; Y92.238 Other place in hospital as the place of occurrence of the external cause; R68.84 Jaw pain; F84.0 Autistic disorder